=== PATIENT | female | born 1955 | race Caucasian/White ===

== ENCOUNTER 2016-06-30 10:25 | Day surgery (SDC) | payer MEDICARE, BC ==
[~2016-06-30 10:25] MED LIST: FAMOTIDINE 20 MG/2 ML VIAL IV PRN; HYDROmorphone 1 MG/ML 1 ML SYRINGE IVP PRN; LACTATED RINGERS 1,000 ML IV SCH; LIDOCAINE 1% 20 ML VIAL (10MG/ML) FOR IV START INTRADERMA PRN; MIDAZOLAM 2 MG/2 ML VIAL IV PRN; ONDANSETRON 4 MG/2 ML VIAL IVP PRN; Pre Op ABX Message 1 EACH MISC MISCELLANE ONE
[2016-06-30 11:32] VITALS: TEMP 98.3
[2016-06-30] MEDS ORDERED: MIDAZOLAM 2 MG/2 ML VIAL ONE (12:47)
[2016-06-30] MEDS ORDERED: PROPOFOL 10 MG/ML 20 ML VIAL IV ONE (12:47)
[2016-06-30] MEDS ORDERED: LIDOCAINE 1% INJ 10MG/ML (20 ML MDV) ONE (12:47)
[2016-06-30] MEDS ORDERED: fentaNYL (PF) 50 MCG/ML 2 ML AMP ONE (12:47)
[2016-06-30 13:43] VITALS: BP 101/71; PULSE 67; RESP 20
--- NOTE | 2016-06-30 13:44 | P.WCSRGD ---
Wound Ctr Surgical Debridement Date of service: 06/30/2016 Surgeon: Zaria Pre-and postop diagnosis: Large decubiti over the coccyx and sacrum Type of debridement: Excisional surgical Chief complaint: ulcer of as described above Anesthesia: 2% lidocaine gel applied to the ulcer Signs of infection: Mild redness Extent of necrotic, devitalized or non-viable tissue: Large rolled edge and skin bridge Other material in the wound that is expected to inhibit healing or promote adjacent tissue breakdown: Same Degree of epithelialization: % Method and instrument: Surgical debridement with scalpel Character of the wound after debridement: Clean open subcutaneous bed with granulation Description of necrotic material present: Rolled skin edge and skin bridge Description of tissue removed: Same Pre-debridement measurement: 11 x 6.5 cm and 1.5 cm in depth with deep undermining at 6:00 and a large central skin bridge Postoperative debridement measurement: 11 x 6.5 cm and 1.5 cm in depth. The undermining, skin bridge and rolled skin edges were removed Control of bleeding:Bleeding was easily controlled with saline moistened gauze and light pressure as well as electrocautery Post debridement dressing: Curlex packing Patient tolerated procedure well
== END 2016-06-30 14:40 ==
LOC: OR 10:25
PROVIDERS: ATTEND Thoracic Surgery (Cardiothoracic Vascular Surgery)
DX: L89.154 Pressure ulcer of sacral region, stage 4 (principal); L03.312 Cellulitis of back [any part except buttock and flank]; G35 Multiple sclerosis; G82.50 Quadriplegia, unspecified; I10 Essential (primary) hypertension; F41.9 Anxiety disorder, unspecified; Z86.14 Personal history of Methicillin resistant Staphylococcus aureus infection; Z79.2 Long term (current) use of antibiotics; Z79.899 Other long term (current) drug therapy; Z87.891 Personal history of nicotine dependence
CPT/HCPCS: 11042; 11045 ×3; J2250; J2405; J2001; J3010; J2704; 99152; 99153

== ENCOUNTER 2016-10-11 09:52 | Inpatient (IN) | payer MEDICARE, BC ==
--- NOTE | 2016-10-11 10:14 | ED ---
General Adult HPI - General Chief complaint: Altered Mental Status Stated complaint: Altered mental status Time Seen by Provider: 10/11/16 10:03 Source: family, EMS, RN notes reviewed Mode of arrival: EMS Limitations: altered mental status - History of Present Illness Initial comments: Patient is a pleasant 61-year-old female presenting to the emergency Department with change in mental status. Patient is not answering appropriately and history is obtained by the . Patient has not been ambulatory secondary to MS for several years. Patient has had declining mental status over the past 6 months. Patient is markedly confused yesterday and today. Patient has been sleeping all day. Patient did have fever of 101 yesterday and was given Tylenol then. Further history is limited. - Related Data Home Medications Medication Instructions Recorded Confirmed Amino Acids/Protein Hydrolys 30 ml PO DAILY 05/10/16 10/04/16 [Pro-Stat Supplement] Cholecalciferol [Vitamin D3] 2,000 unit PO HS 05/10/16 10/04/16 Cyanocobalamin (Vitamin B-12) 1,000 mcg PO HS 05/10/16 10/04/16 [Vitamin B-12] Melatonin 3 mg PO HS PRN 05/10/16 10/04/16 Multivitamins, Thera [Multivitamin 1 tab PO DAILY 05/10/16 10/04/16 (formulary)] Nystatin 100,000 Unit/gm Powd 1 applic TOPICAL TID 05/10/16 10/04/16 [Mycostatin Powder] [place]-3 Fatty Acids/Fish Oil [Fish 1 each PO DAILY 05/10/16 10/04/16 Oil 1,000 mg Softgel] Oxybutynin Chloride [Ditropan XL] 10 mg PO HS 05/10/16 10/04/16 Polyethylene Glycol 3350 [Miralax] 17 gm PO QAM 05/10/16 10/04/16 Baclofen 10 mg PO TID 05/24/16 10/04/16 Lactobacillus Acidophilus 1 cap PO BID 05/24/16 10/04/16 [Acidophilus] ALPRAZolam [Xanax] 0.5 mg PO TID 06/24/16 10/04/16 Bisacodyl 10 mg PO DIRECTED PRN 06/24/16 10/04/16 Lactose-Reduced Food [Ensure Plus] 1 dose PO TID 06/24/16 10/04/16 Acetaminophen [Tylenol] 325 mg PO Q4H PRN 08/16/16 10/04/16 traMADol HCl [Ultram] 50 mg PO HS PRN 08/16/16 10/04/16 Ipratropium-Albuterol Nebulize 3 ml INHALATION Q6HR 08/23/16 10/04/16 [Duoneb 0.5 mg-3 mg/3 ml Soln] Loratadine [Claritin] 10 mg PO DAILY 09/20/16 10/04/16 Ferrous Sulfate [Iron (65 MG 325 mg PO DAILY 09/27/16 10/04/16 Elemental)] Folic Acid 0.4 mg PO HS 09/27/16 10/04/16 Allergies Allergy/AdvReac Type Severity Reaction Status Date / Time No Known Allergies Allergy Verified 10/11/16 09:58 Review of Systems ROS Statement: Those systems with pertinent positive or pertinent negative responses have been documented in the HPI. ROS Other: All systems not noted in ROS Statement are negative. Limitations: ROS unobtainable due to patients medical condition Constitutional: Reports: fever Past Medical History Past Medical History: Hypertension, Skin Disorder Additional Past Medical History / Comment(s): NEEDS WANDA FOR LIFTING, RAO CATH, CAN TAKE ORAL MEDS ONE AT A TIME. Multiple Sclerosis since 1998.; sacral & L hip decubitus ulcer with cellulitis ; malnutrition; Chronic UTI's History of Any Multi-Drug Resistant Organisms: ESBL, MRSA Date of last positivie culture/infection: 05/31/16-MRSA; 09/07/16 -ESBL E.coli MDRO Source:: MRSA-Buttock; ESBL-tissue culture Past Surgical History: Appendectomy, Section, Tubal Ligation Additional Past Surgical History / Comment(s): DEBRIDEMENT OF SACRAL PRESSURE SORE IN MARCH 2016 AT [facility]. Past Anesthesia/Blood Transfusion Reactions: No Reported Reaction Past Psychological History: Anxiety Smoking Status: Former smoker Past Alcohol Use History: Unable to Obtain Additional Past Alcohol Use History / Comment(s): unknown smoking history Past Drug Use History: Unable to Obtain - Past Family History Mother Family Medical History: No Reported History General Exam Limitations: altered mental status, physical limitation General appearance: alert, in no apparent distress Head exam: Present: atraumatic Eye exam: Present: normal appearance, PERRL ENT exam: Present: mucous membranes dry Neck exam: Present: normal inspection Respiratory exam: Present: normal lung sounds bilaterally Cardiovascular Exam: Present: tachycardia Expanded Peripheral pulses: 2+: Radial (R), Radial (L), Dorsalis Pedis (R), Dorsalis Pedis (L) GI/Abdominal exam: Present: soft. Absent: tenderness Extremities exam: Present: other (Legs are somewhat contracted). Absent: pedal edema, calf tenderness Neurological exam: Present: alert, altered, other (Limited exam. No flaccid paralysis.) Expanded Neurological exam: Present: protecting the airway, other (Answers yes and no however inappropriately.) Patient oriented to: Present: person, place, time Psychiatric exam: Present: normal affect Skin exam: Present: other (Sacral wound vac) Course Vital Signs 10/11/16 09:53 Temperature 98.2 F Pulse Rate 113 H Respiratory 18 Rate Blood Pressure 151/73 O2 Sat by Pulse 94 L Oximetry - Reevaluation(s) Reevaluation #1: 10/11/16 10:52 Patient does meet sepsis criteria diagnosed at 10:52 AM. 10/11/16 10:56 Patient does meet criteria for septic shock. Lactic acid is 4. Patient has received greater than 30 mL/kg IV fluid bolus. EKG Findings - EKG Comments: EKG Findings:: Artifact is present. Narrow complex rhythm at 108. QRS 60. QT to 94. QTC 393. Normal axis. Normal QRS. No ST change. Procedures - Sepsis Sepsis Focused Exam #1 Time Sepsis Criteria Met: 10:52 Sepsis Focused Exam Date: 10/11/16 Sepsis Focused Exam Time: 10:58 Sepsis Focused Exam Complete: Yes Vital Signs & RN Notes Reviewed: Yes Capillary Refill: < 2 Seconds: Fingers, Toes Peripheral Pulses: Normal: Radial (R), Radial (L) Skin Color: Normal for Patient Respiratory Exam: normal lung sounds Cardiovascular Exam: regular rate, normal rhythm Medical Decision Making - Medical Decision Making Patient was evaluated again and somewhat improved. Patient is more alert and somewhat more appropriate. Case was discussed in detail with Dr. Aden, who will admit for Dr. Valencia. Dr. Jain will be consult. Admission orders written. - Lab Data Result diagrams: 10/11/16 10:06 10/11/16 10:06 Lab Results 10/11/16 10/11/1617 Range/Units 10:06 10:06 10:06 WBC 33.2 H* (3.8-10.6) k/uL RBC 4.04 (3.80-5.40) m/uL Hgb 10.3 L (11.4-16.0) gm/dL Hct 32.9 L (34.0-46.0) % MCV 81.4 (80.0-100.0) fL MCH 25.5 (25.0-35.0) pg MCHC 31.3 (31.0-37.0) g/dL RDW 15.3 (11.5-15.5) % Plt Count 449 (150-450) k/uL Neutrophils % 94 % Lymphocytes % 3 % Monocytes % 3 % Eosinophils % 0 % Basophils % 0 % Neutrophils # 31.2 H (1.3-7.7) k/uL Lymphocytes # 0.8 L (1.0-4.8) k/uL Monocytes # 0.9 (0-1.0) k/uL Eosinophils # 0.0 (0-0.7) k/uL Basophils # 0.1 (0-0.2) k/uL Hypochromasia Slight PT (9.0-12.0) sec INR (<1.1) APTT (22.0-30.0) sec Sodium 145 (137-145) mmol/L Potassium 5.4 H (3.5-5.1) mmol/L Chloride 109 H (98-107) mmol/L Carbon Dioxide 19 L (22-30) mmol/L Anion Gap 17 mmol/L BUN 54 H (7-17) mg/dL Creatinine 2.21 H (0.52-1.04) mg/dL Est GFR (MDRD) Af Amer 27 (>60 ml/min/1.73 sqM) Est GFR (MDRD) Non-Af 23 (>60 ml/min/1.73 sqM) Glucose 132 H (74-99) mg/dL Plasma Lactic Acid Александр (0.7-2.0) mmol/L Calcium 9.3 (8.4-10.2) mg/dL Total Bilirubin 0.6 (0.2-1.3) mg/dL AST 24 (14-36) U/L ALT 21 (9-52) U/L Alkaline Phosphatase 103 (38-126) U/L Total Creatine Kinase 69 (30-135) U/L Total Protein 7.0 (6.3-8.2) g/dL Albumin 3.0 L (3.5-5.0) g/dL Urine Color Urine Appearance (Clear) Urine pH (5.0-8.0) Ur Specific [place] (1.001-1.035) Urine Protein (Negative) Urine Glucose (UA) (Negative) Urine Ketones (Negative) Urine Blood (Negative) Urine Nitrite (Negative) Urine Bilirubin (Negative) Urine Urobilinogen (<2.0) mg/dL Ur Leukocyte Esterase (Negative) Urine RBC (0-5) /hpf Urine WBC (0-5) /hpf Urine WBC Clumps (None) /hpf Amorphous Sediment (None) /hpf Urine Bacteria (None) /hpf Urine Mucus (None) /hpf 10/11/16 10/11/16 10/11/16 Range/Units 10:06 10:06 10:06 WBC (3.8-10.6) k/uL RBC (3.80-5.40) m/uL Hgb (11.4-16.0) gm/dL Hct (34.0-46.0) % MCV (80.0-100.0) fL MCH (25.0-35.0) pg MCHC (31.0-37.0) g/dL RDW (11.5-15.5) % Plt Count (150-450) k/uL Neutrophils % % Lymphocytes % % Monocytes % % Eosinophils % % Basophils % % Neutrophils # (1.3-7.7) k/uL Lymphocytes # (1.0-4.8) k/uL Monocytes # (0-1.0) k/uL Eosinophils # (0-0.7) k/uL Basophils # (0-0.2) k/uL Hypochromasia PT 12.9 H (9.0-12.0) sec INR 1.3 (<1.1) APTT 35.7 H (22.0-30.0) sec Sodium (137-145) mmol/L Potassium (3.5-5.1) mmol/L Chloride (98-107) mmol/L Carbon Dioxide (22-30) mmol/L Anion Gap mmol/L BUN (7-17) mg/dL Creatinine (0.52-1.04) mg/dL Est GFR (MDRD) Af Amer (>60 ml/min/1.73 sqM) Est GFR (MDRD) Non-Af (>60 ml/min/1.73 sqM) Glucose (74-99) mg/dL Plasma Lactic Acid Александр 4.0 H* (0.7-2.0) mmol/L Calcium (8.4-10.2) mg/dL Total Bilirubin (0.2-1.3) mg/dL AST (14-36) U/L ALT (9-52) U/L Alkaline Phosphatase (38-126) U/L Total Creatine Kinase (30-135) U/L Total Protein (6.3-8.2) g/dL Albumin (3.5-5.0) g/dL Urine Color Yellow Urine Appearance Turbid H (Clear) Urine pH 6.0 (5.0-8.0) Ur Specific [place] 1.017 (1.001-1.035) Urine Protein 2+ H (Negative) Urine Glucose (UA) Negative (Negative) Urine Ketones Negative (Negative) Urine Blood Moderate H (Negative) Urine Nitrite Negative (Negative) Urine Bilirubin Negative (Negative) Urine Urobilinogen <2.0 (<2.0) mg/dL Ur Leukocyte Esterase Large H (Negative) Urine RBC 66 H (0-5) /hpf Urine WBC >182 H (0-5) /hpf Urine WBC Clumps Occasional H (None) /hpf Amorphous Sediment Rare H (None) /hpf Urine Bacteria Many H (None) /hpf Urine Mucus Few H (None) /hpf - Radiology Data Radiology results: report reviewed (Computed tomography scan of the brain shows atrophy and white matter changes. No acute process.), image reviewed (Chest x- ray shows minimal patchy right basilar areas of atelectasis or early infiltrate. ) Critical Care Time Critical Care Time: Yes Total Critical Care Time: 38 Disposition Clinical Impression: Urinary tract infection, Septic shock, Dehydration Disposition: ADMITTED IP TO THIS [facility] Condition: Serious Referrals: Lucius Valencia MD [Primary Care Provider] - 1-2 days Time of Disposition: 11:05
[2016-10-11] MEDS: SODIUM CHLORIDE 0.9% 500 ML IV SCH ×2 (10:17→11:03)
--- NOTE | 2016-10-11 10:37 | XR ---
EXAMINATION TYPE: XR chest 1V portable DATE OF EXAM: 10/11/2016 10:31 AM Comparison: None Clinical History: [id number] female with fever Findings: Leftward patient rotation alters the normal cardiac mediastinal contours. Heart appears normal size. Aorta and pulmonary vasculature within normal limits. There is some patchy bibasilar opacity. Upper a nd mid lungs are clear. No significant pleural effusion. Impression: Limited portable rotated exam. Some minimal patchy bibasilar areas of atelectasis or early infiltrate s are noted.
[2016-10-11 10:38] LABS: Basophils # (A) 0.1 k/uL (0-0.2); Basophils % (A) 0 %; CH 25.3; CHCM 31.2; Eosinophils % (A) 0 %; HCT 32.9 % (34.0-46.0); HDW 2.61; HGB 10.3 gm/dL (11.4-16.0); Hypochromasia Slight; Luc # (Auto) 0.15; Luc % (Auto) 1; Lymphocytes # (A) 0.8 k/uL (1.0-4.8); Lymphocytes % (A) 3 %; MCH 25.5 pg (25.0-35.0); MCHC 31.3 g/dL (31.0-37.0); MCV 81.4 fL (80.0-100.0); Mean Platelet Volume 6.5; Monocytes # (A) 0.9 k/uL (0-1.0); Monocytes % (A) 3 %; Neutrophils # (A) 31.2 k/uL (1.3-7.7); Neutrophils % (A) 94 %; RBC 4.04 m/uL (3.80-5.40); RDW 15.3 % (11.5-15.5); WBC (Perox) 33.61
[2016-10-11 10:42] LABS: WBC 33.2 k/uL (3.8-10.6)
[2016-10-11 10:45] LABS: Amorphous Sediment,Urine Rare /hpf; Appearance,Urine Turbid (Clear); Bacteria,Urine Many /hpf; Bilirubin,Urine Negative (Negative); Glucose,Urine (UA) Negative (Negative); Ketones,Urine Negative (Negative); Leukocyte Esterase,Urine Large (Negative); Mucus,Urine Few /hpf; Nitrite,Urine Negative (Negative); Particle Count 74938; Protein,Urine 2+ (Negative); RBC,Urine 66 /hpf (0-5); Specific Gravity,Urine 1.017 (1.001-1.035); UA Billing (MACRO vs. MICRO) MICRO; Urobilinogen,Urine <2.0 mg/dL (<2.0); WBC,Urine >182 /hpf (0-5)
[2016-10-11 10:51] LABS: Calcium 9.3 mg/dL (8.4-10.2); Potassium 5.4 mmol/L (3.5-5.1); Total Bilirubin 0.6 mg/dL (0.2-1.3)
--- NOTE | 2016-10-11 10:52 | CT ---
EXAMINATION TYPE: CT brain wo con DATE OF EXAM: 10/11/2016 10:48 AM COMPARISON: NONE INDICATION: sepsis, ams, fever DLP: 1029.9 mGycm, Automated exposure control for dose reduction was used. CONTRAST: None CT of the brain is performed utilizing 3 mm thick sections through the posterior fossa and 3 mm thick sections through the remaining calvarium. Study is performed within 24 hours of arrival to the hosp ital. No abnormal hyperdensity is present to suggest an acute intracranial hemorrhage. No mass lesion is evident. No acute infarcts are evident. There are patchy periventricular white matter hypodensity is present, likely on the basis of chronic white matter ischemic change. Ventricles and sulci are appropriate for the patient age. Paranasal sinuses and mastoid air cells within the [id number] are clear. Left septal deviation is present. A left septal spur is present. Some dense calcifications along the anterior falx. IMPRESSIONS: 1. No acute intracranial process. 2. Atrophy with periventricular white matter ischemic changes.
[2016-10-11 10:53] LABS: INR 1.3 (<1.1); Partial Thromboplastin Time 35.7 sec (22.0-30.0); Prothrombin Time 12.9 sec (9.0-12.0)
[2016-10-11] MEDS ORDERED: LEVOFLOXACIN 750MG-D5W PMX 750 MG in DEXTROSE/WATER 1 150ML.BAG IVPB STA (10:53)
[2016-10-11] MEDS ORDERED: SODIUM CHLORIDE 0.9% 500 ML IV STA (10:55)
[2016-10-11 11:02] LABS: Creatine Kinase 69 U/L (30-135)
[2016-10-11] MEDS: SODIUM CHLORIDE 0.9% 500 ML IV STA ×2 (11:02→11:03)
[2016-10-11] MEDS ORDERED: NALOXONE 0.4 MG/ML 1 ML VIAL IV PRN (11:06)
[2016-10-11] MEDS ORDERED: ACETAMINOPHEN TAB 325 MG TAB PO PRN (11:06)
[2016-10-11] MEDS ORDERED: IBUPROFEN 400 MG TAB PO PRN (11:06)
[2016-10-11] MEDS ORDERED: IV VANCOMYCIN PER PHARMACY 1 EACH MISC MISCELLANE PRN (11:08)
[2016-10-11 11:14] LABS: Creatine Kinase MB 1.8 ng/mL (0.0-2.4); Troponin I <0.012 ng/mL (0.000-0.034)
[2016-10-11] MEDS ORDERED: VANCOMYCIN 1,250 MG in SODIUM CHLORIDE 0.9% 250 ML IVPB ONE (12:00)
[2016-10-11] MEDS: SODIUM CHLORIDE 0.9% 1,000 ML IV SCH (12:21)
[2016-10-11] MEDS ORDERED: ONDANSETRON 4 MG/2 ML VIAL IM STA (13:41)
[2016-10-11] MEDS ORDERED: ONDANSETRON 4 MG/2 ML VIAL IVP STA (13:44)
[2016-10-11] MEDS: ALPRAZolam 0.5 MG TAB PO PRN (16:00)
[2016-10-11] MEDS: traMADol 50 MG TAB PO SCH ×2 (16:00→23:42)
[2016-10-11 16:26] LABS: Creatine Kinase 116 U/L (30-135)
[2016-10-11 16:38] LABS: Troponin I <0.012 ng/mL (0.000-0.034)
[2016-10-11 16:46] LABS: Creatine Kinase MB 2.9 ng/mL (0.0-2.4)
[2016-10-11] MEDS ORDERED: metroNIDAZOLE-NS PMX 500 MG in SALINE 1 100ML.BAG IVPB SCH (17:30)
--- NOTE | 2016-10-11 18:28 | HP ---
DATE OF ADMISSION: REASON FOR ADMISSION: Change in mental status. Patient presented from [facility], this is a 61-year-old female who has got a history of multiple sclerosis with contractures in lower extremities with decubitus wound, currently on a wound V.A.C. Apparently the wound is around 8 cms in diameter on her sacral region. The patient when brought into hospital patient was apparently not arousable. At baseline, answers some questions, however is bedridden. Patient does have a history of chronic wounds and urinary tract infection. Patient was brought into hospital and noted to have elevated white count around 30,000 and abnormal UA. Patient was also noted to have lactic acid around 4.5. Patient was given about 2 L of cystalloids. On eval, pt was awake, however lethargic, family how was at bedside described this not being her baseline. Most of the history is obtained from the patient's family and from the medical chart review. REVIEW OF SYSTEMS: Deferred due to patient's current condition Past medical history includes hypertension, multiple sclerosis, sacral and left decubitus ulcer, chronic UTIs . Surgical history includes appendectomy, , decubitus ulcer resection. SOCIAL HISTORY: Former smoker. No alcohol or drug history was reported. Currently lives in a long term. FAMILY HISTORY: Not pertinent to current admission. Home medications include: 1. Ultram. 2. Miralax. 3. Ditropan. 4. Fish oil. 5. Nystatin. 6. Multivitamin. 7. [place]. 8. ( ) 9. DuoNeb. 10. Folic acid. 11. Feosol. 12. Albuterol. 13. D3. 14. ( ). 15. Xanax. 16. Tylenol. 17. Prostat. ( ) reviewed and were appropriately reconciled on admission. PHYSICAL EXAMINATION: VITAL SIGNS: Patient appears to be tachycardic, heart rate around 104 to 110, blood pressure 129/63. Saturating at 94% on 2 L supplemental oxygen. Temperature is 96.9. GENERAL APPEARANCE: Appears to be somewhat distressed; however, lethargic. NECK: Supple. No JVD. HEART: S1, S2 heard. Tachycardic. No murmurs were appreciated. LUNGS: Good air movement rhonchi heard left lower lobe posteriorly ABDOMEN: Soft. Some tenderness appreciated in suprapubic region ( ). LOWER EXTREMITIES: No significant edema noted. Lower extremities are contracted. Patient was examined, area of wound V.A.C was appropriate no erythema. Non-tender. No erythema or significant infection. It was changed on 10/09/2016. Laboratory data include white cell count at 3.2, hemoglobin 10.3, hematocrit 32.8, platelets 449. Sodium 145, potassium 5.4, chloride 109, bicarb 19, BUN 54, creatinine 2.21. Lactic acid of 4. UA with significant bacteria. Influenza screen is negative. ASSESSMENT AND PLAN: 1. Severe sepsis secondary to likely a urinary tract infection. Rule out source of infection in sacral region. 2. Acute kidney injury secondary to prerenal azotemia from above. 3. History of multiple sclerosis. 4. Chronic indwelling Baltazar catheter, which will be changed. 5. Lactic acidosis secondary to #1. 6. History of hypertension. 7. Decubitus ulcer on the sacral region, chronic in nature. 8. Anxiety. 9. Chronic pain syndrome. PLAN: Will start antibiotics to treat pseudomonas and MRSA. Will have the infectious disease physician on consult. Chest x-ray was reviewed; appears rotated to the right. There are some changes in the right lower lobe which could be concerning for aspiration etiology as well in this patient. abx with vancomycin, cefepime, and flagyl Baltazar catheter will be changed and will repeat UA is requested. Other microbiology, including cultures of the blood and urine, are ordered. The wound V.A.C. appears to in place. It should be removed. Will obtain an x-ray to start; however, patient will likely need a bone scan to rule out any underlying osteomyelitis as a source of the current sepsis. DVT prophylaxis will be started with subcutaneous heparin. Repeat renal function. I directed the patient to receive a total of 4 L of crystalloids. Moniter closely, if respiratory status is compromised will need to discuss comfort measures. Due to family advanced directives critically ill. BRAYDEN
[2016-10-11 22:26] LABS: Creatine Kinase MB 2.1 ng/mL (0.0-2.4); Troponin I 0.018 ng/mL (0.000-0.034)
[2016-10-11] MEDS: MORPHINE SULFATE 2 MG/ML SYRINGE IVP PRN (23:31)
[2016-10-11] MEDS: CEFEPIME 1 GM in SODIUM CHLORIDE 0.9% 50 ML IVPB SCH (23:34)
[2016-10-12 06:46] LABS: Basophils % (A) 0 %; CHCM 29.7; Eosinophils # (A) 0.1 k/uL (0-0.7); Eosinophils % (A) 1 %; HCT 27.3 % (34.0-46.0); HDW 2.49; Hypochromasia Marked; Luc # (Auto) 0.09; Luc % (Auto) 1; Lymphocytes # (A) 0.4 k/uL (1.0-4.8); Lymphocytes % (A) 4 %; MCH 25.6 pg (25.0-35.0); MCHC 30.4 g/dL (31.0-37.0); MCV 84.3 fL (80.0-100.0); Mean Platelet Volume 6.1; Monocytes # (A) 0.3 k/uL (0-1.0); Monocytes % (A) 3 %; Neutrophils # (A) 11.4 k/uL (1.3-7.7); Neutrophils % (A) 92 %; RBC 3.24 m/uL (3.80-5.40); RDW 15.4 % (11.5-15.5); WBC 12.3 k/uL (3.8-10.6); WBC (Perox) 13.32
[2016-10-12 06:53] LABS: HGB 8.3 gm/dL (11.4-16.0)
[2016-10-12 07:07] LABS: ALT 27 U/L (9-52); AST 25 U/L (14-36); Alkaline Phosphatase 79 U/L (38-126); Anion Gap 12 mmol/L; Blood Urea Nitrogen 35 mg/dL (7-17); Calcium 8.2 mg/dL (8.4-10.2); Carbon Dioxide 18 mmol/L (22-30); Chloride 116 mmol/L (98-107); Glucose 92 mg/dL (74-99); Non-African American GFR(MDRD) >60 (>60 ml/min/1.73 sqM); Sodium 146 mmol/L (137-145); Total Bilirubin 0.3 mg/dL (0.2-1.3); Total Protein 5.7 g/dL (6.3-8.2)
[2016-10-12] MEDS: CEFEPIME 1 GM in SODIUM CHLORIDE 0.9% 50 ML IVPB SCH (07:58)
--- NOTE | 2016-10-12 08:01 | CONS ---
DATE OF CONSULTATION: 10/11/2016 REASON FOR CONSULTATION: Sepsis. HISTORY OF PRESENT ILLNESS: The patient is a 61-year-old female with past medical history significant for multiple sclerosis in a patient who did have urinary retention with chronic indwelling Baltazar catheter and sacral pressure ulcer. The patient has been sent to the [facility] ER with mental status changes. Apparently the patient was noticed to be mildly confused yesterday as well as today and has been sleeping only. The patient also had fever of 101.4 degrees Fahrenheit where the patient was given Tylenol. Subsequently, the patient has been sent to the ER where the patient had been evaluated by the ER physician. CT of the brain was negative for any acute bleed. Chest x-ray rotated exam. Some patchy bibasilar infiltrate. The patient did have an elevated white count of 33.2 with elevated lactic acid of 4. Urine has been significantly positive. Influenza A and B serology were negative. Patient has been started on broad-spectrum antibiotics in the form of Vanco, cefepime and Flagyl. I was asked to see the patient for further recommendation regarding antibiotic therapy. Most of the information has been obtained from review of the chart and talking to the nursing staff as well as the son who was present at beside. However, he was not very familiar with his mother's condition as the patient was unable to provide any history. Review of systems could not be reliably obtained. The positive points have been mentioned in the HPI. PAST MEDICAL HISTORY: Significant for multiple sclerosis, hypertension, history of sacral pressure ulcer, recurrent UTIs with recent ESBL E. coli and MRSA. PAST SURGICAL HISTORY: Appendectomy, , tubal ligation, debridement of sacral pressure ulcer. SOCIAL HISTORY: Remote history of smoking. No drinking or drug use. FAMILY HISTORY: No pertinent findings were noticed. ALLERGIES: No known drug allergies. MEDICATIONS: Currently include the patient is on Tylenol, Xanax, morphine sulfate, Narcan Protonix, Ultram, vancomycin, cefepime and Flagyl. On examination, blood pressure is 129/62 with a pulse of 110, temperature 96.9. She is 94% on 2 liters nasal cannula. General description is an elderly female, lying in bed in no distress. No tachypnea or accessory muscle of respiration use. HEENT examination shows pallor. There is no scleral icterus. Oral mucosal membranes dry. NECK: Trachea central. There is no thyromegaly. LUNGS: Unlabored breathing. Clear to auscultation anteriorly. HEART: S1, S2 regular rate and rhythm. ABDOMEN: Soft. No tenderness. EXTREMITIES: No edema of feet. SKIN EXAMINATION: No rash or mass palpable. NEUROLOGICAL: Patient remains lethargic, orientation could not be determined. LABS: Hemoglobin is 10.2, white count of 33.2 with a BUN of 54, creatinine is 2.21, potassium is 5.4. Urine has been significantly positive. Influenza A and B serology has been negative. DIAGNOSTIC IMPRESSION AND PLAN: Patient with sepsis in a patient who did have fever of elevated white count and tachycardia meeting criteria for systemic inflammatory response syndrome. Source is likely urinary tract infection. Clinically no significant pneumonia and doubt any intra-abdominal infection as the patient's abdomen was soft on clinical examination. The patient did have history of multiple resistant pathogens in the past including methicillin-resistant Staphylococcus aureus and recent ESBL, will need cover for resistant Gram-positive as well as gram-negative pathogen. PLAN: 1. The patient is continued on vancomycin, pharmacy to dose watching kidney function closely and will add meropenem to cover for the ESBL pathogen and discontinue cefepime and Flagyl. 2. Will follow up on the clinical condition and cultures to further adjust the medication if needed. Thank you for this consultation. Will follow this patient along with you.
[2016-10-12] MEDS: SODIUM CHLORIDE 0.9% 1,000 ML IV SCH ×3 (08:56→16:47)
[2016-10-12] MEDS: MEROPENEM 1 GM in SODIUM CHLORIDE 0.9% 100 ML IVPB SCH ×4 (08:57→23:09)
[2016-10-12] MEDS: PANTOPRAZOLE 40 MG/10 ML VIAL IV SCH (09:02)
[2016-10-12] MEDS: traMADol 50 MG TAB PO SCH ×3 (09:07→21:34)
[2016-10-12] MEDS: VANCOMYCIN 1,000 MG in SODIUM CHLORIDE 0.9% 250 ML IVPB SCH ×2 (11:09→20:04)
[2016-10-12] MEDS: MORPHINE SULFATE 2 MG/ML SYRINGE IVP PRN (13:30)
--- NOTE | 2016-10-12 15:33 | CDI ---
In responding to this query, please exercise your independent professional judgment. The [facility] Coding Staff and Clinical Documentation Specialists appreciate your assistance in clarifying documentation, maintaining compliance with coding guidelines, accurately documenting patients condition and capturing severity of illness. The fact that a question is asked does not imply that any particular answer is desired or expected. Communication forms are a method of clarifying documentation and are not made part of the Legal Health Record. Thank you in advance for your clarification. Last Revision, April 2015 Cara Boland [address] [place] [address] Documentation Clarification Form Date: 10/12/2016 3:24:00 PM From: Saloni Baez, CCS, CCDS Admit Date: 10/11/2016 12:18:00 PM Patient Name: Adele Wallis Visit Number: [id number] Discharge Date: Dr. Shaikh Alfonso: A diagnosis of UTI has been documented in the Infectious Disease consult: " Patient with sepsis in a patient who did have fever of elevated white count and tachycardia meeting criteria for systemic inflammatory response syndrome. Source is likely urinary tract infection. " History/Risk factors: MS since 1998 with contractures, sacral buttock ulcer unstageable, recurrent UTIs and MRSA. Patient has an indwelling Baltazar catheter. Clinical Indicators: VS: T 98.2, P 113, R 18, BP 151/73, PO 94 ra Urinalysis: Yellow, turbid, 2+ prot, mod blood, large esterase, RBC 66, WBC > 182. Urine culture: Pending. Treatment: IV fluids, IV Levaquin, IV fluid boluses, IV Narcan, IV Vanco, IV & IM Zofran Admitted to [phone] In your professional opinion, can you please clarify the etiology of the UTI, if known? Baltazar catheter Suprapubic catheter UTI not related to catheter Other condition, please specify Unable to determine If an infective organism is present, please specify cause and effect relationship if applicable. Please document in your progress notes and discharge summary in order to capture severity of illness and risk of mortality. Include clinical findings that support your diagnosis. FYI: Press F11 to launch patient chart ___x__ Place X here if this finding has no clinical significance, is not applicable or if you are not able to provide any additional documentation. Thank You. BRAYDEN
[2016-10-12] MEDS: ALPRAZolam 0.5 MG TAB PO PRN (21:34)
--- NOTE | 2016-10-12 21:56 | PN ---
DATE OF SERVICE: 10/12/2016 Reason for follow-up: 1. Sepsis, possible UTI. 2. Stage IV sacral pressure ulcer. INTERVAL HISTORY: The patient is afebrile. She seemed to more awake and alert today. She is breathing comfortably. Denies significant chest pain, cough, no abdominal pain or pain in the sacral area. On examination, blood pressure 108/60 with a pulse of 89, temperature 98.8, she is 95% on 2 L nasal cannula. General description is a middle-age female lying in bed in no distress. RESPIRATORY SYSTEM: Unlabored breathing. Clear to auscultation anteriorly. HEART: S1, S2. Regular rate and rhythm. ABDOMEN: Soft. No tenderness. Sacral area did show stage IV pressure ulcer. No significant cellulitis or foul smelling drainage. LABS: Hemoglobin 8.3, white count 12.3 with a BUN of 35, creatinine 0.90. Blood culture with gram-negative. DIAGNOSTIC IMPRESSION AND PLAN: 1. Patient with gram-negative bacteremia and the patient admitted to hospital with sepsis, source is likely urinary. Baltazar has been changed recently. The patient will continue Meropenem because of history of resistant gram negative infection especially ESBL has been in the past to which the patient responded with adjustment made further on the basis of the culture report. 2. Patient with stage IV sacral pressure ulcer wound continue with wound vac continuous pressure at 125 mmhg to be changed Tuesday, and Tuesday. Continue supportive care. MTDD
[2016-10-13] MEDS: SODIUM CHLORIDE 0.45% 1,000 ML IV SCH ×2 (00:45→16:52)
[2016-10-13] MEDS ORDERED: LEVOFLOXACIN 750MG-D5W PMX 750 MG in DEXTROSE/WATER 1 150ML.BAG IVPB SCH (06:00)
[2016-10-13 08:33] LABS: Basophils % (A) 0 %; CH 24.5; CHCM 29.6; Eosinophils # (A) 0.2 k/uL (0-0.7); Eosinophils % (A) 2 %; HCT 26.4 % (34.0-46.0); HDW 2.51; Hypochromasia Marked; Luc # (Auto) 0.11; Luc % (Auto) 2; Lymphocytes # (A) 0.8 k/uL (1.0-4.8); Lymphocytes % (A) 11 %; MCH 25.3 pg (25.0-35.0); MCHC 30.5 g/dL (31.0-37.0); Mean Platelet Volume 6.7; Monocytes # (A) 0.3 k/uL (0-1.0); Monocytes % (A) 3 %; Neutrophils % (A) 82 %; RBC 3.18 m/uL (3.80-5.40); RDW 15.3 % (11.5-15.5); WBC 7.3 k/uL (3.8-10.6); WBC (Perox) 7.89
[2016-10-13] MEDS: PANTOPRAZOLE 40 MG/10 ML VIAL IV SCH (08:40)
[2016-10-13] MEDS: traMADol 50 MG TAB PO SCH ×3 (08:45→23:17)
[2016-10-13] MEDS ORDERED: VANCOMYCIN 1,250 MG in SODIUM CHLORIDE 0.9% 250 ML IVPB SCH (09:00)
[2016-10-13 09:02] LABS: Anion Gap 9 mmol/L; Blood Urea Nitrogen 19 mg/dL (7-17); Calcium 8.3 mg/dL (8.4-10.2); Carbon Dioxide 21 mmol/L (22-30); Chloride 108 mmol/L (98-107); Glucose 88 mg/dL (74-99); Non-African American GFR(MDRD) >60 (>60 ml/min/1.73 sqM); Potassium 3.4 mmol/L (3.5-5.1); Sodium 138 mmol/L (137-145)
--- NOTE | 2016-10-13 09:07 | PN ---
DATE OF SERVICE: 10/12/2016 INTERVAL HISTORY: Ms. Wallis is a 61-year-old female with known history of hypertension, multiple sclerosis, sacral decubitus ulcer and previous history of multidrug resistant UTI who is also currently on wound VAC for decub ulcers was brought to the hospital as the patient apparently was not arousable. Patient is currently being treated for urinary tract infection with meropenem due to history of multidrug resistant in the past. ID is following this patient. Patient currently today is more awake and oriented. Wound dressing has been done today. Denied any complaints of chest pain. No complaints of pain at this time. No acute overnight issues. Leukocytosis is improving now. Patient otherwise denied any complaints of chest pain or short of breath. No nausea or vomiting. No diarrhea or dysuria. Patient has a Baltazar catheter, which has been changed. All other review of systems negative except the above. Current medications include Tylenol, Xanax, meropenem, morphine sulfate, Narcan, Protonix, vancomycin, tramadol and normal saline at 100 mL per hour. PHYSICAL EXAMINATION: A 61-year-old female, lying in the bed. Awake, alert, oriented x3; appears to be in no apparent distress. VITALS: Blood pressure is 131/70, pulse 103, respirations 18, temperature afebrile, pulse ox 96% pm 2 L nasal cannula. HEENT: Atraumatic normocephalic. Neck is supple. No JVD. CVS EXAM: S1, S2 heard. No murmurs, no gallop. LUNGS: Bilateral air entry is present. Diminished breath sounds bilaterally. Nonlabored breathing. ABDOMEN: Soft, nontender. Bowel sounds are present. WINDOWS ADMINISTRATOR: Awake, alert, oriented, x3. EXTREMITIES: No edema. Pulses are palpable bilaterally. Wound VAC is in place for decub ulcers. SKIN: Patient does have sacral decub ulcer, ( ) in diameter, stage IV. LABORATORY DATA: WBC 12.3, hemoglobin 8.3, platelets 293. Sodium 146, potassium 4.0, chloride 116, bicarb is 18, BUN 35, creatinine 0.9. Albumin 2.4. IMPRESSION: 1. Severe sepsis secondary to urinary tract infection with history of multiple urinary tract infection with multidrug resistant bacteria. 2. Sacral decubitus ulcers currently on wound VAC, rule out infection. Continue the dressing changes. 3. Acute kidney injury secondary to prerenal, improving. 4. History of multiple sclerosis. 5. Chronic indwelling Baltazar catheter, which has been changed. 6. Lactic acidosis, improved. 7. Hypertension history. 8. Chronic pain syndrome. 9. Anxiety. DISCUSSION AND PLAN: The patient will be continue on antibiotics in the form of vancomycin and meropenem. ID is following this patient. Will follow up on the wound cultures and continue with the wound VAC management. Continue with DVT prophylaxis with heparin subcu. Leukocytosis is improving now. Will continue with current management. IV fluids will be changed to half normal saline due to hyperchloremia and hypernatremia. Will follow up closely. Further management depending on the clinical course.
[2016-10-13] MEDS: VANCOMYCIN 1,000 MG in SODIUM CHLORIDE 0.9% 250 ML IVPB SCH (10:56)
[2016-10-13] MEDS: MEROPENEM 1 GM in SODIUM CHLORIDE 0.9% 100 ML IVPB SCH ×3 (13:51→23:41)
--- NOTE | 2016-10-13 20:12 | PN ---
DATE OF SERVICE: 10/13/2016 REASON FOR FOLLOWUP: Gram-negative bacteremia, source urinary. INTERVAL HISTORY: The patient is afebrile. He is feeling slightly better, more awake and alert, breathing comfortably. Denies significant chest pain. No cough. No abdominal pain. On examination, blood pressure 119/72 with a pulse of 94, temperature 97.6. She is 95% on 2L nasal cannula. General description is a middle-age female lying in bed in no distress. RESPIRATORY SYSTEM: Unlabored breathing. Clear to auscultation anteriorly. HEART: S1, S2. Regular rate and rhythm. ABDOMEN: Soft. No tenderness. EXTREMITIES: No edema of feet. LABS: Hemoglobin 8 with a white count 7.3. BUN of 19, creatinine 0.61. Blood culture with gram- negative bacilli. ID sensitivity is pending. DIAGNOSTIC IMPRESSION AND PLAN: 1. Patient with gram-negative bacteremia, source urinary. At this time, will repeat blood cultures x1 to make sure no evidence of any persistent bacteremia. Check ultrasound of the abdomen. As no gram-positive has been grown, will discontinue the vancomycin and keep the patient on meropenem in view of the previous history of an extended-spectrum beta-lactamase Escherichia coli urinary tract infection. 2. Patient with a stage IV sacral pressure ulcer for which continue with the wound VAC. Continue supportive care.
[2016-10-13] MEDS: HEPARIN SODIUM,PORCINE 5,000 UNIT/ML 1 ML VIAL SQ SCH (23:48)
[2016-10-14] MEDS: MEROPENEM 1 GM in SODIUM CHLORIDE 0.9% 100 ML IVPB SCH ×2 (07:39→15:54)
[2016-10-14] MEDS: ALPRAZolam 0.5 MG TAB PO PRN ×2 (07:46→17:11)
[2016-10-14] MEDS: HEPARIN SODIUM,PORCINE 5,000 UNIT/ML 1 ML VIAL SQ SCH ×2 (07:49→15:55)
[2016-10-14] MEDS: PANTOPRAZOLE 40 MG TABLET PO SCH (07:49)
[2016-10-14] MEDS: traMADol 50 MG TAB PO SCH ×3 (07:50→21:10)
[2016-10-14] MEDS: SODIUM CHLORIDE 0.45% 1,000 ML IV SCH ×2 (07:50→15:56)
[2016-10-14] MEDS ORDERED: VANCOMYCIN TROUGH DUE 1 EACH MISC MISCELLANE ONE (08:00)
--- NOTE | 2016-10-14 09:14 | US ---
EXAMINATION TYPE: US abdomen complete DATE OF EXAM: 10/14/2016 8:28 AM COMPARISON: NONE CLINICAL HISTORY: fever , bacteremia. Fever, bacteremia, exam done portable EXAM MEASUREMENTS: Liver Length: 19.4 cm Gallbladder Wall: 0.5 cm CBD: 0.4 cm Spleen: 15.5 cm Right Kidney: 12.5 x 5.1 x 5.4 cm Left Kidney: 12.0 x 6.1 x 6.4 cm Pancreas: wnl Liver: enlarged at 19.4cm, slightly heterogeneous Gallbladder: low level echoes within along with echogenic shadowing foci, irregularly thickened wall Evidence for sonographic Salmon's sign: no CBD: wnl Spleen: enlarged at 15.5cm, limited by rib shadowing and overlying bowel gas Right Kidney: 1.4cm echogenic shadowing focus mid pole, 2.2 x 2.0 x 1.6cm hypoechoic area superior p ole Left Kidney: visualized portions wnl, limited by rib shadowing and overlying bowel gas Upper IVC: wnl Abd Aorta: visualized portions wnl, partially obscured by overlying midline bowel gas IMPRESSION: 1. Shadowing renal calculi without obstruction within the right renal pelvis 2. Right renal cortical cyst 3. Debris with echogenic area within the fundus. Gallbladder wall is thickened and there appears to b e a wall echo shadow complex. Correlate for acute cholecystitis.
--- NOTE | 2016-10-14 09:17 | PN ---
DATE OF SERVICE: 10/13/2016 . Carrier is a 61-year-old female with known history of hypertension, multiple sclerosis and status post sacral decubitus ulcer, currently on a wound VAC and history of ESPL UTI, admitted to the hospital with altered status, currently being treated for a urinary tract infection with the meropenem and also vancomycin. ID is following this patient. Patient is more awake and oriented today. . No fever. No chills. No acute overnight issues. Urine culture showed Proteus and E. coli. Blood cultures shows E. coli and Proteus as well. Blood cultures have been repeated. No fever. No chills. No chest pain or short of breath. No nausea, vomiting or abdominal pain. All other review of systems are negative except as above. CURRENT MEDICATIONS: Reviewed. PHYSICAL EXAMINATION: A 61-year-old female, lying in the bed. Awake, alert, oriented x3, appears to be in no apparent distress. VITALS: Blood pressure is 119/72, pulse is 111, respirations 18, temperature afebrile, pulse ox 95% on 2 L nasal cannula. HEENT: Atraumatic, normocephalic. Neck is supple. No JVD. CVS EXAM: S1, S2 heard, no murmur, no gallop. LUNGS: Bilateral air entry is present, no murmurs, no gallop. Abdomen is soft, bowel sounds are present. TEXTILES AND CLOTHING TEACHER: Awake, alert, oriented x3. Patient able to move all limbs. EXTREMITIES: No edema. SKIN: Patient does have stage IV sacral decub ulcer with wound VAC in place. LABORATORY DATA: WBC 7.3, hemoglobin 8.0, platelets 237, sodium 138, potassium 3.4, chloride 108. Bicarb is 21, BUN 19, creatinine 0.61, albumin 2.4. IMPRESSION: 1. Severe sepsis secondary to urinary tract infection. Urine culture showed Escherichia coli and Proteus. Final culture is pending. 2. Escherichia coli and Proteus bacteremia, repeat blood cultures have been ordered. Continued on meropenem. 3. Acute kidney injury secondary to prerenal, improving now. 4. History of multiple sclerosis. 5. Chronic Baltazar catheter, indwelling which has been changed. 6. Lactic acidosis, resolved. 7. Hypertension. 8. Chronic pain syndrome. 9. Anxiety. 10. Deep venous thrombosis prophylaxis with heparin subQ. DISCUSSION AND PLAN: Patient will be continued on antibiotics in the form of meropenem. Vancomycin has been discontinued as there is no gram-positive growth. Will follow up with blood cultures and continue with antibiotics in the form meropenem. ID is on board and patient is clinically improved now. Further recommendations based on the clinical course. MTDD
[2016-10-14] MEDS: MORPHINE SULFATE 2 MG/ML SYRINGE IVP PRN (17:11)
--- NOTE | 2016-10-14 18:07 | PN ---
DATE OF SERVICE: 10/14/2016 REASON FOR FOLLOWUP: ESBL bacteremia. INTERVAL HISTORY: The patient is afebrile. She is currently breathing comfortably. Denies significant chest pain. Occasional cough. No abdominal pain, nausea, vomiting or any diarrhea. However, she is not a very good historian. On examination, blood pressure is 133/67 with a pulse of 85, temperature 97.7. She is 95% on 2 L nasal cannula. General description is a middle-aged female lying in bed in no distress. RESPIRATORY SYSTEM: Unlabored breathing. Clear to auscultation anteriorly. HEART: S1, S2. Regular rate and rhythm. ABDOMEN: Soft. She is mildly tender in the right upper quadrant area. Slight guarding. No rigidity. EXTREMITIES: No edema of feet. LABS: Hemoglobin 8, white count 7.3 with a BUN of 19, creatinine 0.61. DIAGNOSTIC IMPRESSION AND PLAN: 1. Patient with an ESBL Escherichia coli bacteremia. Source is likely urinary; however, abdominal ultrasound did show concern for possible cholecystitis. She may benefit from evaluation by Surgery. Keep the patient on Meropenem. Patient will likely need a PICC line for outpatient IV antibiotic therapy. 2. Sacral wound, stage IV. Continue the wound V.A.C., to be changed Tuesday, Tuesday and Tuesday, setting of continuous pressure at 125 mmhg with black foam. 3. Patient should be in contact isolation and should not be sharing a room with MRSA. This was explained to the R.N. yesterday as well as today. BRAYDEN
[2016-10-15] MEDS: HEPARIN SODIUM,PORCINE 5,000 UNIT/ML 1 ML VIAL SQ SCH ×4 (00:10→23:51)
[2016-10-15] MEDS: MEROPENEM 1 GM in SODIUM CHLORIDE 0.9% 100 ML IVPB SCH ×4 (00:10→23:52)
[2016-10-15 08:13] LABS: Basophils % (A) 0 %; CH 24.7; Eosinophils # (A) 0.1 k/uL (0-0.7); Eosinophils % (A) 1 %; HDW 2.84; HGB 8.7 gm/dL (11.4-16.0); Hypochromasia Moderate; Luc # (Auto) 0.27; Luc % (Auto) 3; Lymphocytes # (A) 1.5 k/uL (1.0-4.8); Lymphocytes % (A) 18 %; MCH 25.8 pg (25.0-35.0); MCHC 32.4 g/dL (31.0-37.0); MCV 79.7 fL (80.0-100.0); Mean Platelet Volume 6.9; Monocytes # (A) 0.6 k/uL (0-1.0); Monocytes % (A) 8 %; Neutrophils # (A) 5.6 k/uL (1.3-7.7); Neutrophils % (A) 69 %; RBC 3.38 m/uL (3.80-5.40); RDW 15.1 % (11.5-15.5)
[2016-10-15 08:36] LABS: Anion Gap 8 mmol/L; Blood Urea Nitrogen 13 mg/dL (7-17); Calcium 8.3 mg/dL (8.4-10.2); Carbon Dioxide 25 mmol/L (22-30); Chloride 105 mmol/L (98-107); Glucose 88 mg/dL (74-99); Non-African American GFR(MDRD) >60 (>60 ml/min/1.73 sqM); Potassium 3.2 mmol/L (3.5-5.1); Sodium 138 mmol/L (137-145)
[2016-10-15] MEDS: traMADol 50 MG TAB PO SCH ×3 (08:38→21:24)
[2016-10-15] MEDS: PANTOPRAZOLE 40 MG TABLET PO SCH (08:40)
--- NOTE | 2016-10-15 10:12 | PN ---
DATE OF SERVICE: 10/14/2016 INTERVAL HISTORY: Ms. Carrier is a 61-year-old female with a known history of hypertension, multiple sclerosis and also stage IV sacral decub ulcers, currently on a wound VAC and history of ESBL, UTI, admitted to the hospital with altered mental status and currently being treated for a urinary tract infection with meropenem. Blood cultures positive for E. coli and Proteus mirabilis, repeat blood cultures show no growth so far. Otherwise, ultrasound of the abdomen showed possible cholecystitis. Will consult General Surgery for further evaluation of that. Otherwise, patient denied any abdominal pain at this time. ID is following this patient. Patient today denied any complaints of chest pain or short of breath. No current abdominal pain. Patient is more awake and oriented x3. No fever. No chills. No acute overnight issues. The patient is on chronic indwelling Baltazar catheter. REVIEW OF SYSTEMS: CONSTITUTIONAL: No fever. No chills. RESPIRATORY: No cough or sputum production. CARDIOVASCULAR: No chest pain. No short of breath. ABDOMEN: No nausea, vomiting or abdominal pain. GENITOURINARY: Negative. ENDOCRINE: Negative. PSYCHIATRIC: Negative. All of the 14-point review of systems negative, except as above. CURRENT MEDICATIONS: Reviewed. PHYSICAL EXAMINATION: A 61-year-old female lying in the bed. Awake, alert, oriented x3. Appears to be in no apparent distress. VITALS: Blood pressure is 138/80, pulse 82, respirations 16, temperature afebrile, pulse ox 97% on 2 L nasal cannula. HEENT: Atraumatic, normocephalic. Neck is supple, no JVD. CVS EXAM: S1, S2 heard. No murmurs, no gallop. LUNGS: Bilateral air entry is present. No wheezing. No crackles. Nonlabored breathing. Abdomen is soft, nontender. Bowel sounds are present. No palpable organomegaly. TRAINING AND DEVELOPMENT DIRECTOR: Awake, alert, oriented, x3. Able to move all her extremities. Currently, patient is bedridden. EXTREMITIES: No edema. Pulses palpable bilaterally. No clubbing or cyanosis. PSYCHIATRIC: Cooperative. LABORATORY DATA: Reviewed. IMPRESSION: 1. Severe sepsis secondary to urinary tract infection. Urine culture growing Escherichia coli and Proteus bacteremia. Repeat blood cultures are negative so far. 2. Acute cholecystitis as per ultrasound of the abdomen. Patient does not have any active complaints now. Consult Surgery for further evaluation. 3. Acute kidney injury secondary to prerenal, improved now. 4. History of multiple sclerosis. Patient is bedridden. 5. Chronic indwelling Baltazar catheter, has been changed during this admission. 6. Lactic acidosis, resolved. 7. Hypertension. 8. Chronic pain syndrome. 9. Anxiety. 10. Deep venous thrombosis on heparin subcutaneous. DISCUSSION AND PLAN: Patient will be continued on antibiotics in the form of meropenem, vancomycin has been discontinued as there is no gram-positive growth. General Surgery consulted for evaluation of cholecystitis. Otherwise, the repeat blood culture negative. ID is following this patient. Continue current management. Further recommendations based on the clinical course.
[2016-10-15 15:28] VITALS: BMI 20.5
--- NOTE | 2016-10-15 16:18 | P.GSCN ---
History of Present Illness Consult date: 10/15/16 Reason for Consult: Cholecystitis History of present illness: Patient hospitalized with fevers and malaise. The patient was found to have blood culture showing E. coli and Proteus. This matched urinary cultures as well. The patient during her hospitalization was having some abdominal tenderness. A ultrasound showed gallstones with a thickened gallbladder wall. The patient denies abdominal pain at this point. She is tolerating her regular diet. She has been afebrile recently. Her liver enzymes are normal. Patient has an indwelling Rao catheter. Review of Systems The patient denies any acute changes in his vision or hearing, no dysphagia or odynophagia, no chest pain or shortness of breath, no headache, no runny nose, no rectal bleeding or melena, no unexplained weight loss Past Medical History Past Medical History: Hypertension, Pneumonia, Skin Disorder Additional Past Medical History / Comment(s): NEEDS WANDA FOR LIFTING, chronic RAO CATH, CAN USUALLY TAKE ORAL MEDS ONE AT A TIME OR CRUSH IN APPLESAUCE, Multiple Sclerosis since 1998.; sacral & L hip (mostly healed) decubitus ulcer with cellulitis ; malnutrition; Chronic UTI's, HTN in past but now labile and mostly low. History of Any Multi-Drug Resistant Organisms: ESBL, MRSA Year Discovered:: 05/31/16-MRSA; 10/11/16-ESBL E.coli MDRO Source:: MRSA-Buttock; ESBL URINE,BLOOD Past Surgical History: Appendectomy, Section, Tubal Ligation Additional Past Surgical History / Comment(s): DEBRIDEMENTS OF SACRAL PRESSURE SORE. Past Anesthesia/Blood Transfusion Reactions: No Reported Reaction Past Psychological History: Anxiety Additional Psychological History / Comment(s): Pt resides at [facility]. She is a wanda lift to wheelchair. She needs assist with all ADLs. She has confused times. Smoking Status: Former smoker Past Alcohol Use History: Occasional Additional Past Alcohol Use History / Comment(s): Pt started smoking in 1971 and quit 03/2016. She smoked < 1ppd. She used to drink alcohol but has not drank in 20 yrs. Past Drug Use History: None Reported - Past Family History Mother Family Medical History: No Reported History Additional Family Medical History / Comment(s): Mother is healthy Father Family Medical History: AFIB, Cancer, Diabetes Mellitus, Myocardial Infarction ( [place]) Additional Family Medical History / Comment(s): Father had lung cancer with lobectomy. Medications and Allergies Home Medications Medication Instructions Recorded Confirmed Type Amino Acids/Protein Hydrolys 30 ml PO TID@0700,1300,1900 05/10/16 10/11/16 History [Pro-Stat Supplement] Cholecalciferol [Vitamin D3] 2,000 unit PO HS 05/10/16 10/11/16 History Cyanocobalamin (Vitamin B-12) 1,000 mcg PO HS 05/10/16 10/11/16 History [Vitamin B-12] Melatonin 3 mg PO HS PRN 05/10/16 10/11/16 History Multivitamins, Thera [Multivitamin 1 tab PO HS 05/10/16 10/11/16 History (formulary)] Belding-3 Fatty Acids/Fish Oil [Fish 1 cap PO HS 05/10/16 10/11/16 History Oil 1,000 mg Softgel] Oxybutynin Chloride [Ditropan XL] 10 mg PO HS 05/10/16 10/11/16 History Polyethylene Glycol 3350 [Miralax] 17 gm PO QAM 05/10/16 10/11/16 History Baclofen 10 mg PO TID@0500,1300,1900 05/24/16 10/11/16 History ALPRAZolam [Xanax] 0.5 mg PO TID@0500,1300,2100 06/24/16 10/11/16 History Bisacodyl 10 mg PO DIRECTED PRN 06/24/16 10/11/16 History Acetaminophen [Tylenol] 650 mg PO Q4H PRN 08/16/16 10/11/16 History traMADol HCl [Ultram] 50 mg PO BID 08/16/16 10/11/16 History Ipratropium-Albuterol Nebulize 3 ml INHALATION RT-Q6H PRN 08/23/16 10/11/16 History [Duoneb 0.5 mg-3 mg/3 ml Soln] Loratadine [Claritin] 10 mg PO DAILY 09/20/16 10/11/16 History Ferrous Sulfate [Iron (65 MG 325 mg PO DAILY@0700 09/27/16 10/11/16 History Elemental)] Folic Acid 0.4 mg PO HS 09/27/16 10/11/16 History Nystatin [Nystop] 1 applic TOPICAL TID@0700,1300,1900 10/11/16 10/11/16 History Allergies Allergy/AdvReac Type Severity Reaction Status Date / Time No Known Allergies Allergy Verified 10/11/16 11:24 Surgical - Exam Vital Signs Temp Pulse Resp BP Pulse Ox 98.2 F 113 H 18 151/73 94 L 10/11/16 09:53 10/11/16 09:53 10/11/16 09:53 10/11/16 09:53 10/11/16 09:53 Physical exam: General: Well-developed, well-nourished HEENT: Normocephalic, sclerae nonicteric Abdomen: Nontender, nondistended Extremities: No edema Neuro: Alert and oriented Results - Labs 10/15/16 07:42 10/15/16 07:42 Abnormal Lab Results - Last 24 Hours (Table) 10/15/16 10/15/16 Range/Units 07:42 07:42 RBC 3.38 L (3.80-5.40) m/uL Hgb 8.7 L (11.4-16.0) gm/dL Hct 27.0 L (34.0-46.0) % MCV 79.7 L (80.0-100.0) fL Potassium 3.2 L (3.5-5.1) mmol/L Calcium 8.3 L (8.4-10.2) mg/dL Microbiology - Last 24 Hours (Table) 10/13/16 14:16 Blood Culture - Preliminary Blood No Growth after 24 hours Diabetes panel 10/15/16 Range/Units 07:42 Sodium 138 (137-145) mmol/L Potassium 3.2 L (3.5-5.1) mmol/L Chloride 105 (98-107) mmol/L Carbon Dioxide 25 (22-30) mmol/L BUN 13 (7-17) mg/dL Creatinine 0.57 (0.52-1.04) mg/dL Glucose 88 (74-99) mg/dL Calcium 8.3 L (8.4-10.2) mg/dL Calcium panel 10/15/16 Range/Units 07:42 Calcium 8.3 L (8.4-10.2) mg/dL Pituitary panel 10/15/16 Range/Units 07:42 Sodium 138 (137-145) mmol/L Potassium 3.2 L (3.5-5.1) mmol/L Chloride 105 (98-107) mmol/L Carbon Dioxide 25 (22-30) mmol/L BUN 13 (7-17) mg/dL Creatinine 0.57 (0.52-1.04) mg/dL Glucose 88 (74-99) mg/dL Calcium 8.3 L (8.4-10.2) mg/dL Adrenal panel 10/15/16 Range/Units 07:42 Sodium 138 (137-145) mmol/L Potassium 3.2 L (3.5-5.1) mmol/L Chloride 105 (98-107) mmol/L Carbon Dioxide 25 (22-30) mmol/L BUN 13 (7-17) mg/dL Creatinine 0.57 (0.52-1.04) mg/dL Glucose 88 (74-99) mg/dL Calcium 8.3 L (8.4-10.2) mg/dL Assessment and Plan (1) Urinary tract infection Narrative/Plan: The patient is asymptomatic currently. She is nontender on examination. Patient I discussed the findings of gallstones. We'll consider elective cholecystectomy as her urinary sepsis resolved. Consider outpatient follow-up. No further plans at this point. We'll sign off. Please contact if the patient's symptoms change. Status: Acute
[2016-10-15] MEDS ORDERED: Potassium Replacement Protocol 1 EACH MISC MISCELLANE PRN (17:18)
[2016-10-15] MEDS: POTASSIUM CHLORIDE 10 MEQ, LIDOCAINE 2% INJ 10 MG in SODIUM CHLORIDE 0.9% 100 ML IV SCH ×2 (19:15→20:09)
[2016-10-16] MEDS: HEPARIN SODIUM,PORCINE 5,000 UNIT/ML 1 ML VIAL SQ SCH ×3 (08:01→23:16)
[2016-10-16] MEDS: PANTOPRAZOLE 40 MG TABLET PO SCH (08:01)
[2016-10-16] MEDS: MEROPENEM 1 GM in SODIUM CHLORIDE 0.9% 100 ML IVPB SCH ×3 (08:01→23:16)
[2016-10-16] MEDS: traMADol 50 MG TAB PO SCH ×3 (08:14→21:45)
[2016-10-16] MEDS: ALPRAZolam 0.5 MG TAB PO PRN ×3 (08:14→21:45)
--- NOTE | 2016-10-16 10:34 | PN ---
DATE OF SERVICE: 10/15/2016 Reason for followup is ESBL and E. coli bacteremia secondary to urinary source. INTERVAL HISTORY: The patient is afebrile. She is currently breathing comfortably. Denies significant chest pain or shortness of breath, no cough. No abdominal pain or any diarrhea. On examination, blood pressure is 135/76 with pulse 87, temperature 98.7, she is 95% on 3 L nasal cannula. General description is a middle-aged female, lying in bed in no distress. RESPIRATORY SYSTEM: Unlabored breathing. Clear to auscultation anteriorly. HEART: S1, S2, regular rate and rhythm. ABDOMEN: Soft, no tenderness. LABS: Followup blood culture has been negative. DIAGNOSTIC IMPRESSION AND PLAN: 1. Patient with ESBL and Escherichia coli bacteremia secondary to urinary source. Surgery has seen the patient, clinically rule out cholecystitis. Patient responding to the meropenem. She will get a PICC line on Tuesday and will be able to finish therapy with IV Invanz 1 gm daily for another 10 days. 2. Stage IV sacral pressure ulcer, continue with the wound VAC to be changed Tuesday, Tuesday, Tuesday.
--- NOTE | 2016-10-16 11:50 | PN ---
DATE OF SERVICE: 10/15/2016 INTERVAL HISTORY: Ms. Carrier is a 61-year-old female with known history of hypertension and multiple sclerosis and also stage IV sacral decubitus ulcer on wound VAC, and history of ESBL UTI, admitted to the hospital with altered mental status and currently being treated for urinary tract infection with meropenem. Blood cultures are growing E. Coli and proteus mirabilis. Repeat cultures are negative so far. Ultrasound of the abdomen showed gallstones and possible cholecystitis. Results were reviewed with the patient and recommending elective cholecystectomy. Patient has not had abdominal pain at this time. Patient is more alert and oriented today. Denies any complaints of chest pain or shortness of breath. No other complaints. No nausea or vomiting. Follow up on blood cultures and ID final recommendations. REVIEW OF SYSTEMS: CONSTITUTIONAL: No fevers or chills. RESPIRATORY: No cough or sputum production. CARDIOVASCULAR: No chest pain or shortness of breath. ABDOMEN: No nausea, vomiting, abdominal pain. GENITOURINARY: No dysuria or hematuria. PSYCH: Alert, oriented. All other review of systems negative other than above. CURRENT MEDICATIONS: Reviewed. PHYSICAL EXAMINATION: A 61-year-old female, lying in the bed, comfortably, awake, alert, oriented, x3, appears in no apparent distress. VITALS: Blood pressure is 138/71, pulse is 96, respiration 18, temperature afebrile, pulse ox 95% on room air. HEENT: Normocephalic, atraumatic. NECK: Supple. No JVD. CVS exam: S1 and S2 heard. No murmurs, no rub. LUNGS: Bilateral good air entry is present. No wheezing. ABDOMEN: Soft. Bowel sounds present. PARTY PLANNER: Awake, alert, oriented x3. Able to move all extremities. EXTREMITIES: No edema. Pulses palpable bilaterally. No clubbing or cyanosis. PSYCHIATRIC: Cooperative. LABORATORY DATA: WBC 8.0, hemoglobin 8.7, platelets 118. Sodium 138, potassium 3.2, chloride 102, bicarb is 25. BUN 13, creatinine 0.7, calcium 8.3. IMPRESSION: 1. Severe sepsis secondary to urinary tract infection. Urine culture growing proteus mirabilis and Escherichia coli, currently on meropenem. 2. Escherichia coli and proteus bacteremia. Repeat cultures are negative so far. 3. Gallstones with possible acute cholecystitis. No surgical intervention. Elective cholecystectomy as per general surgery. 4. Acute kidney injury, most likely prerenal, resolved now. 5. History of multiple sclerosis. Patient is bedridden. 6. Chronic indwelling Baltazar catheter, has been changed during admission. 7. Lactic acidosis. 8. Hypertension. 9. Chronic pain syndrome. 10. Anxiety. 11. DVT prophylaxis. RECOMMENDATIONS AND PLAN: Current antibiotics and final recommendations per ID. Anticipate discharge in the next 24 to 48 hours.
[2016-10-17] MEDS: traMADol 50 MG TAB PO SCH ×3 (07:44→21:53)
[2016-10-17] MEDS: MEROPENEM 1 GM in SODIUM CHLORIDE 0.9% 100 ML IVPB SCH ×2 (07:45→15:56)
[2016-10-17] MEDS: PANTOPRAZOLE 40 MG TABLET PO SCH (07:45)
[2016-10-17] MEDS: HEPARIN SODIUM,PORCINE 5,000 UNIT/ML 1 ML VIAL SQ SCH ×2 (07:45→15:56)
[2016-10-17] MEDS: ALPRAZolam 0.5 MG TAB PO PRN (15:56)
[2016-10-18] MEDS: MEROPENEM 1 GM in SODIUM CHLORIDE 0.9% 100 ML IVPB SCH ×3 (00:10→16:03)
[2016-10-18] MEDS: HEPARIN SODIUM,PORCINE 5,000 UNIT/ML 1 ML VIAL SQ SCH ×3 (00:11→16:08)
[2016-10-18 07:39] VITALS: RESP 16
[2016-10-18] MEDS: PANTOPRAZOLE 40 MG TABLET PO SCH (07:57)
[2016-10-18] MEDS: traMADol 50 MG TAB PO SCH ×2 (08:05→16:03)
[2016-10-18 08:08] LABS: Anion Gap 8 mmol/L; Blood Urea Nitrogen 18 mg/dL (7-17); Calcium 8.8 mg/dL (8.4-10.2); Carbon Dioxide 26 mmol/L (22-30); Chloride 107 mmol/L (98-107); Glucose 94 mg/dL (74-99); Non-African American GFR(MDRD) >60 (>60 ml/min/1.73 sqM); Potassium 4.2 mmol/L (3.5-5.1); Sodium 141 mmol/L (137-145)
[2016-10-18 08:11] LABS: Basophils # (A) 0.1 k/uL (0-0.2); Basophils % (A) 1 %; CH 24.6; CHCM 29.9; Eosinophils # (A) 0.2 k/uL (0-0.7); Eosinophils % (A) 2 %; HCT 29.7 % (34.0-46.0); HDW 2.62; Hypochromasia Marked; Luc % (Auto) 3; Lymphocytes % (A) 19 %; MCHC 30.4 g/dL (31.0-37.0); MCV 82.2 fL (80.0-100.0); Mean Platelet Volume 6.6; Monocytes # (A) 0.5 k/uL (0-1.0); Monocytes % (A) 5 %; Neutrophils # (A) 7.5 k/uL (1.3-7.7); Neutrophils % (A) 71 %; RBC 3.61 m/uL (3.80-5.40); RDW 15.9 % (11.5-15.5); WBC 10.5 k/uL (3.8-10.6); WBC (Perox) 10.54
--- NOTE | 2016-10-18 10:35 | PN ---
DATE OF SERVICE: 10/17/2016 REASON FOR FOLLOW-UP: ESBL E. coli, UTI and bacteremia. INTERVAL HISTORY: The patient is afebrile. She is more awake, alert, breathing comfortably. Denies significant chest pain, shortness of breath or cough. No abdominal pain or diarrhea. On examination, blood pressure 136/73 with a pulse of 93, temperature 97.1, she is 97% on room air. General description is a middle-aged female lying in bed in no distress. RESPIRATORY SYSTEM: Unlabored breathing. Clear to auscultation anteriorly. HEART: S1, S2. Regular, rate and rhythm. ABDOMEN: Soft, no tenderness. LABS: Hemoglobin is 8.7, white count 8.0 with a BUN of 13, creatinine 0.57. Follow up blood cultures have been negative. DIAGNOSTIC IMPRESSION AND PLAN: 1. Patient with ESBL E. coli and proteus mirabilis bacteremia source is urinary. The patient will be able to get a PICC line tomorrow. She will be switched over to Invanz 1 gram daily for another 10 days to finish course of therapy. 2. Patient with stage IV sacral pressure ulcer, will continue with wound VAC to be changed Tuesday, Tuesday and Tuesday. TRANGD
--- NOTE | 2016-10-18 11:27 | PN ---
DATE OF SERVICE: 10/17/2016 INTERVAL HISTORY: Ms. Wallis is a 61-year-old female with known history of hypertension and multiple sclerosis status post sacral decub ulcer, currently on wound VAC and history of ESBL, urinary tract infection admitted to the hospital with altered mental status which is much improved now. Currently the patient being treated with Meropenem for urinary tract infection as well as bacteremia with Proteus and E. coli. Repeat blood cultures have been negative. Anticipate discharge with PICC line to continue antibiotic course, possibly on Tuesday. The patient denied any chest pain or short of breath. No nausea, vomiting or abdominal pain. Tolerating p.o. diet. No acute overnight issues. All other review of systems negative except as above. CURRENT MEDICATIONS: Reviewed. PHYSICAL EXAMINATION: A 61 -year-old female lying in bed comfortably, awake, alert and oriented times two to three. Appears in no apparent distress. VITALS: Blood pressure is 126/60, pulse is 82, respiratory rate 16, temperature afebrile. Pulse ox 97% on room air. HEENT: Atraumatic. Normocephalic. NECK: Supple. No JVD. CARDIOVASCULAR: S1, S2 heard. No murmurs or gallop. LUNGS: Bilateral air entry is present. No wheezing. No crackles. Nonlabored breathing. ABDOMEN: Soft, nontender. Bowel sounds present. CENTRAL NERVOUS SYSTEM: Awake, alert and oriented times three. The patient does have bilateral lower extremity weakness/paralysis. PSYCHIATRY: Cooperative. EXTREMITIES: No edema. LABORATORY DATA: Reviewed. IMPRESSION: 1. Severe sepsis secondary to urinary tract infection with Escherichia coli and Proteus. 2. Escherichia coli and Proteus bacteremia. Repeat cultures have been negative. 3. Multiple sclerosis and bilateral lower extremity paralysis currently bed ridden. 4. Stage 4 decub, on wound VAC. No infection noted. 5. Gallstones with possible acute cholecystitis,no surgery now. Elective cholecystectomy as per general surgery. 6. Acute kidney injury, most likely prerenal resolved. 7. Chronic indwelling Baltazar catheter, change. 8. Lactic acidosis. 9. Hypertension. 10. Chronic pain. 11. Anxiety. 12. DVT proph. DISCUSSION AND PLAN: The patient will be continued on current management including antibiotics and encourage p.o. intake. PICC line tomorrow and discharge antibiotics. Further recommendations based on the clinical course. [id number]
--- NOTE | 2016-10-18 11:29 | PN ---
DATE OF SERVICE: 10/16/2016 INTERVAL HISTORY: Ms. Carrier is a 61-year-old female with a known history of hypertension and multiple sclerosis, bedridden, bilateral lower extremity weakness, stage V sacral decubitus ulcer on wound VAC and history of ESBL UTI admitted to the hospital with altered mental status and currently being treated for a urinary tract infection with meropenem. Blood cultures are growing E. Coli and Proteus mirabilis. Repeat cultures are negative so far. Ultrasound of the abdomen showed gallstones and possible cholecystitis. ( ) no surgical recommendations for surgery. Otherwise, patient will be having PICC line tomorrow and antibiotic course per ID for the next 12 days. Patient today denied any complaints of chest pain or short of breath. No nausea, vomiting or abdominal pain. Patient is awake, alert and oriented x2 to 3. No acute overnight issues. REVIEW OF SYSTEMS: CONSTITUTIONAL: No fever, no chills. No chest pain or short of breath. No nausea, vomiting or abdominal pain. Tolerating p.o. diet. All other review of systems negative except as above. CURRENT MEDICATIONS: Reviewed. PHYSICAL EXAMINATION: A 61-year-old female lying in bed comfortably, awake, alert, oriented x2 to 3. VITALS: Blood pressure 113/60. Pulse is 89, respirations 18, temperature afebrile, pulse ox 96% on room air. HEENT: Atraumatic, normocephalic. Neck is supple. No JVD. CVS EXAM: S1, S2 heard. No murmurs, no gallop. LUNGS: Bilateral air entry is present. No wheeze. No crackles. ABDOMEN: Soft, nontender. Bowel sounds present. 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 Patient does have bilateral lower extremity weakness and bedridden. Able to move upper extremities bilaterally. PSYCHIATRIC: Cooperative. EXTREMITIES: No edema. Pulses palpable bilaterally. LABORATORY DATA: Reviewed. IMPRESSION: 1. Severe sepsis secondary to urinary tract infection due to Escherichia coli and Proteus mirabilis. 2. Escherichia coli and Proteus mirabilis bacteremia. Repeat cultures are negative so far. 3. Gallstones with possible cholecystitis, no active chest pain. Surgery recommended elective cholecystectomy as an outpatient. 4. Acute kidney injury, most likely prerenal resolved now. 5. History of multiple sclerosis and the patient is bedridden. 6. Chronic indwelling Baltazar catheter was changed during admission. 7. Lactic acidosis resolved. 8. Hypertension. 9. Chronic pain. 10. Anxiety. 11. Deep venous thrombosis prophylaxis. DISCUSSION AND PLAN: Patient is currently ( ) meropenem. Anticipate discharge with PICC line possibly on Tuesday. Further recommendations based on the clinical course.
[2016-10-18] MEDS ORDERED: SODIUM CHLORIDE 0.9% 1,000 ML IV ONE (14:26)
[2016-10-18] MEDS ORDERED: LIDOCAINE 2% INJ 20 MG/ML SQ ONE (14:57)
--- NOTE | 2016-10-18 14:57 | DS ---
DATE OF ADMISSION: 10/11/2016 DATE OF DISCHARGE: 10/18/2016 DISCHARGE DIAGNOSES: 1. Severe sepsis secondary to urinary tract infection with Escherichia coli and Proteus. 2. Escherichia coli and Proteus bacteremia, repeat cultures are negative. 3. History of ESBL urinary tract infection. 4. Multiple sclerosis and bilateral lower extremity paralysis, currently bedridden. 5. Stage IV decub ulcer, currently on wound VAC. 6. Gallstones with possible acute cholecystitis. Surgery is recommended, elective cholecystectomy as an outpatient. 7. Acute kidney injury, most likely prerenal resolved. 8. Chronic indwelling Baltazar catheter, changed during the admission. 9. Lactic acidosis improved, resolved. 10. Hypertension. 11. Chronic pain. 12. Anxiety. 13. Deep venous thrombosis prophylaxis with heparin subQ. HOSPITAL COURSE: Ms. Wallis is a 61-year-old female with known history of multiple sclerosis and other multiple medical problems as discussed above, admitted to the hospital with altered mental status and found to have urinary tract infection with urine culture growing E. coli and Proteus. Patient also had blood cultures positive for E. coli and Proteus. Patient was started on meropenem while in the hospital. Patient's white count has much improved now and normalized. Patient has clinical status ( ) currently at baseline and alert and oriented x3. Otherwise, patient was continued on wound VAC as well. Patient was seen by ID and recommended to continue the antibiotics in the form of ertapenem for the next 10 more days to complete the antibiotic course. Otherwise, patient is clinically stable to be discharged back to extended care facility. DISCHARGE PHYSICAL EXAMINATION: A 61-year-old female lying in the bed comfortably. Awake, alert, oriented x3. Appears to be in no apparent distress. VITALS: Blood pressure is 104/64, pulse is 90, respirations 16, temperature afebrile, pulse ox 96% on room air. Laboratory data reviewed. WBC 10.4, hemoglobin 9.0, platelets 364. Sodium 141, potassium 4.2, chloride 107, bicarb is 26. BUN 18, creatinine 0.52. DISCHARGE PHYSICAL EXAMINATION: HEENT: Atraumatic, normocephalic. Neck is supple. No JVD. CVS EXAM: S1, S2 heard. No murmurs, no gallop. LUNGS: Bilateral air entry is present. ABDOMEN: Soft, nontender. 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 Bilateral lower extremity paralysis. PSYCHIATRIC: Cooperative. EXTREMITIES: No edema. Pulses palpable bilaterally. Discharge medications include: 1. ProStat supplement 30 mL p.o. t.i.d. 2. Vitamin D3 two thousand units p.o. at bedtime. 3. Vitamin B12 one thousand mcg p.o. at bedtime. 4. Melatonin 3 mg p.o. at bedtime. 5. Multivitamins 1 tablet p.o. at bedtime. 6. Overgaard-3 fatty acids 1 capsule p.o. at bedtime. 7. Oxybutynin 10 mg p.o. at bedtime. 8. Polyethylene glycol 17 gm p.o. q.a.m. p.r.n. for constipation. 9. Baclofen 10 mg p.o. t.i.d. 10. Alprazolam 0.5 mg p.o. t.i.d. p.r.n. for anxiety. 11. Bisacodyl 10 mg p.o. a.c. as directed p.r.n. for constipation. 12. Tylenol 650 mg p.o. q.4 hourly p.r.n. for pain. 13. Ultram 50 mg p.o. b.i.d. 14. DuoNeb 3 mL inhalation q.i.d. p.r.n. 15. Loratadine 10 mg p.o. daily. 16. Ferrous sulfate 325 mg p.o. daily. 17. Folic acid 0.4 mg p.o. at bedtime. 18. Nystatin one application topical t.i.d. 19. Ertapenem 1 gm IV piggyback q.24 hours for 10 days. Patient will be discharged to extended care facility in stable condition. Activity as tolerated. Heart-healthy diet and continue with the indwelling Baltazar catheter and follow with ( ) in [address] Luicus Valencia in 1 to 2 days. Time taken more than 35 minutes including 18 minutes counseling the patient and coordinating care.
--- NOTE | 2016-10-18 15:19 | IR ---
PICC LINE PLACEMENT: HISTORY: Infection requiring long-term antibiotic therapy PROCEDURE: Ultrasound and fluoroscopic guidance of PICC line placement. COMPLICATIONS: None ANESTHESIA: 1. 1% Lidocaine locally. FINDINGS/TECHNIQUE: The procedure was explained to the patient. The risks, complications, benefits and alternatives were discussed and any questions were answered. Informed consent was obtained. The patient was placed supine on the fluoroscopic table and prepped and draped in the usual sterile [facility] ion. Utilizing a 21 gauge needle and sonographic and fluoroscopic guidance, access in the vein was achieved and there is placement of a 0.018 guidewire. The vein is patent. A 4-F sheath was placed o trina the guidewire. The guidewire and dilator were removed and a 4-F. PICC line was placed through th e sheath with the tip at the level of the SVC. The sheath was removed, the catheter was flushed and sutured into position. The patient was stable throughout the procedure and remained stable upon disc harge from the Department of Radiology. The vein puncture was patent under ultrasound. A remy scale image was obtained to document patency of the vein punctured. All elements of the maximal barrier technique were utilized. FLUOROSCOPY TIME: 0.8 minute IMPRESSION: Successful PICC line placement under ultrasound and fluoroscopic guidance.
[2016-10-18 17:02] VITALS: BP 114/67; PULSE 89; TEMP 99.4
--- NOTE | 2016-10-19 08:45 | PN ---
DATE OF SERVICE: 10/18/2016 Reason for follow-up is ESBL Escherichia coli bacteremia and stage IV sacral pressure ulcer. INTERVAL HISTORY: The patient was seen on rounds this morning. The patient awaiting for PICC line prior to discharge. The patient is more awake and alert. She was breathing comfortably. Denies significant chest pain or shortness of breath, cough. No abdominal pain. No diarrhea. On examination, blood pressure is 140/67, pulse of 89, temperature 98. She is 94% on room air. General description is a middle-age female lying in bed in no distress. RESPIRATORY SYSTEM: Unlabored breathing. Clear to auscultation anteriorly. HEART: S1, S2. Regular rate and rhythm. ABDOMEN: Soft, no tenderness. EXTREMITIES: No edema feet. Sacral wound is currently covered with wound V.A.C. LABS: Hemoglobin is 9 with a white count of 10.5, BUN of 18, creatinine 0.52. DIAGNOSTIC IMPRESSION AND PLAN: 1. Patient with ESBL Escherichia coli and Proteus bacteremia, source is urinary. Patient's follow up blood culture has been negative for the following day. Patient at this time will be switched over to Invanz 1 gram daily for another 10 days to finish a total 3 day course of therapy from negative blood culture. 2. Patient with sacral pressure ulcer. Continue with wound V.A.C.
== END 2016-10-18 19:19 | DRG 871 ==
LOC: EC 09:52 → 6SEL 12:18 → 5MS5E 10-13 00:12
PROVIDERS: ADMIT Internal Medicine; ATTEND Internal Medicine
PROC: 02HV33Z Insertion of Infusion Device into Superior Vena Cava, Percutaneous Approach (ICD-10-PCS; principal; 2016-10-18 08:30)
PROC: B548ZZA Ultrasonography of Superior Vena Cava, Guidance (ICD-10-PCS; 2016-10-18 08:30)
DX: A41.51 Sepsis due to Escherichia coli [E. coli] (principal); L89.154 Pressure ulcer of sacral region, stage 4; N17.9 Acute kidney failure, unspecified; E87.2 Acidosis; K80.00 Calculus of gallbladder with acute cholecystitis without obstruction; E46 Unspecified protein-calorie malnutrition; G82.20 Paraplegia, unspecified; E87.0 Hyperosmolality and hypernatremia; N39.0 Urinary tract infection, site not specified; R65.20 Severe sepsis without septic shock; A41.4 Sepsis due to anaerobes; G35 Multiple sclerosis; I10 Essential (primary) hypertension; F41.9 Anxiety disorder, unspecified; G89.4 Chronic pain syndrome; E86.0 Dehydration; E87.8 Other disorders of electrolyte and fluid balance, not elsewhere classified; R33.9 Retention of urine, unspecified; Z16.12 Extended spectrum beta lactamase (ESBL) resistance; Z74.01 Bed confinement status; Z90.49 Acquired absence of other specified parts of digestive tract; Z87.440 Personal history of urinary (tract) infections; Z86.14 Personal history of Methicillin resistant Staphylococcus aureus infection; Z87.891 Personal history of nicotine dependence; Z79.899 Other long term (current) drug therapy
CPT/HCPCS: 36415; 36569; 70450; 71010; 76700; 76937; 77001; 80048; 80053; 80202; 81001; 82550; 82553; 83605; 84132; 84484; 85025; 85610; 85730; 87040; 87077; 87086; 87186; 87502; 93005; 96365; 96366; 96368; 96375; 99291

== ENCOUNTER 2016-10-19 08:00 | Inpatient (IN) | payer MEDICARE, BC ==
[2016-10-19] MEDS ORDERED: LORazepam 2 MG/ML SYRINGE IV STA (08:20)
[2016-10-19] MEDS ORDERED: SODIUM CHLORIDE 0.9% 500 ML IV STA (08:20)
[2016-10-19] MEDS ORDERED: SODIUM CHLORIDE 0.9% 1,000 ML IV STA (08:20)
[2016-10-19] MEDS ORDERED: levETIRAcetam IV 1,000 MG in SALINE 1 100ML.BAG IVPB STA (08:25)
[2016-10-19 08:36] LABS: Basophils % (A) 0 %; CH 24.4; CHCM 30.1; Eosinophils % (A) 0 %; HCT 29.6 % (34.0-46.0); HDW 2.57; HGB 9.1 gm/dL (11.4-16.0); Hypochromasia Moderate; Luc # (Auto) 0.23; Luc % (Auto) 2; Lymphocytes # (A) 1.8 k/uL (1.0-4.8); Lymphocytes % (A) 15 %; MCH 24.7 pg (25.0-35.0); MCHC 30.5 g/dL (31.0-37.0); Mean Platelet Volume 6.4; Monocytes # (A) 0.5 k/uL (0-1.0); Monocytes % (A) 4 %; Neutrophils # (A) 9.5 k/uL (1.3-7.7); Neutrophils % (A) 79 %; RBC 3.66 m/uL (3.80-5.40); WBC 12.1 k/uL (3.8-10.6); WBC (Perox) 12.11
--- NOTE | 2016-10-19 08:45 | ED ---
General Adult HPI - General Chief complaint: Altered Mental Status Stated complaint: altered mental status Time Seen by Provider: 10/19/16 08:03 Source: EMS, RN notes reviewed, old records reviewed Mode of arrival: EMS Limitations: altered mental status - History of Present Illness Initial comments: This is a 61-year-old female here for evaluation. Patient is brought in by EMS from the labs for evaluation of altered mental status, patient does appear to be seizing. Patient will give accurate history secondary to condition, that is at bedside. Patient hit from EMS patient's chart states patient is DO NOT RESUSCITATE just discharged yesterday from recent hospital illness from sepsis. Patient does sore from MS and is usually low functioning, no prior history of seizures - Related Data Home Medications Medication Instructions Recorded Confirmed Cholecalciferol [Vitamin D3] 2,000 unit PO HS 05/10/16 10/19/16 Melatonin 3 mg PO HS PRN 05/10/16 10/19/16 [place]-3 Fatty Acids/Fish Oil [Fish 1 cap PO HS 05/10/16 10/19/16 Oil 1,000 mg Softgel] Oxybutynin Chloride [Ditropan XL] 10 mg PO HS 05/10/16 10/19/16 Polyethylene Glycol 3350 [Miralax] 17 gm PO QAM 05/10/16 10/19/16 Baclofen 10 mg PO TID 05/24/16 10/19/16 Bisacodyl 10 mg PO DAILY PRN 06/24/16 10/19/16 Acetaminophen [Tylenol] 650 mg PO Q4H PRN 08/16/16 10/19/16 Ipratropium-Albuterol Nebulize 3 ml INHALATION RT-Q6H PRN 08/23/16 10/19/16 [Duoneb 0.5 mg-3 mg/3 ml Soln] Loratadine [Claritin] 10 mg PO DAILY 09/20/16 10/19/16 Ferrous Sulfate [Iron (65 MG 325 mg PO DAILY 09/27/16 10/19/16 Elemental)] Folic Acid 0.4 mg PO HS 09/27/16 10/19/16 ALPRAZolam [Xanax] 0.5 mg PO TID 10/19/16 10/19/16 Amino Acids/Protein Hydrolys 30 ml PO DAILY 10/19/16 10/19/16 [Pro-Stat Supplement] Multivit-Min/FA/Lycopene/Lut 1 tab PO DAILY 10/19/16 10/19/16 [Centrum Silver Tablet] Vitamin B-12/Folic Acid 500-400mg 1 tab PO HS 10/19/16 10/19/16 traMADol HCl [Ultram] 50 mg PO Q8H PRN 10/19/16 10/19/16 Previous Rx's Medication Instructions Recorded Ertapenem [INVanz] 1 gm IVPB Q24H 10 Days 10/18/16 Allergies Allergy/AdvReac Type Severity Reaction Status Date / Time No Known Allergies Allergy Verified 10/19/16 08:28 Review of Systems ROS Statement: Those systems with pertinent positive or pertinent negative responses have been documented in the HPI. ROS Other: All systems not noted in ROS Statement are negative. Past Medical History Past Medical History: Hypertension, Pneumonia, Skin Disorder Additional Past Medical History / Comment(s): NEEDS WANDA FOR LIFTING, chronic RAO CATH, CAN USUALLY TAKE ORAL MEDS ONE AT A TIME OR CRUSH IN APPLESAUCE, Multiple Sclerosis since 1998.; sacral & L hip (mostly healed) decubitus ulcer with cellulitis ; malnutrition; Chronic UTI's, HTN in past but now labile and mostly low. History of Any Multi-Drug Resistant Organisms: ESBL, MRSA Date of last positivie culture/infection: 05/31/16-MRSA; 10/11/16-ESBL E.coli MDRO Source:: MRSA-Buttock; ESBL URINE,BLOOD Past Surgical History: Appendectomy, Section, Tubal Ligation Additional Past Surgical History / Comment(s): DEBRIDEMENTS OF SACRAL PRESSURE SORE. Past Anesthesia/Blood Transfusion Reactions: No Reported Reaction Past Psychological History: Anxiety Additional Psychological History / Comment(s): Pt resides at [facility]. She is a wanda lift to wheelchair. She needs assist with all ADLs. She has confused times. Smoking Status: Former smoker Past Alcohol Use History: Occasional Additional Past Alcohol Use History / Comment(s): Pt started smoking in 1971 and quit 03/2016. She smoked < 1ppd. She used to drink alcohol but has not drank in 20 yrs. Past Drug Use History: None Reported - Past Family History Mother Family Medical History: No Reported History Additional Family Medical History / Comment(s): Mother is healthy Father Family Medical History: AFIB, Cancer, Diabetes Mellitus, Myocardial Infarction ( [place]) Additional Family Medical History / Comment(s): Father had lung cancer with lobectomy. General Exam - General Exam Comments Initial Comments: Focal, simple partial seizure face left Limitations: altered mental status General appearance: alert, in no apparent distress Head exam: Present: atraumatic, normocephalic, normal inspection Eye exam: Present: normal appearance, PERRL, EOMI. Absent: scleral icterus, conjunctival injection, periorbital swelling ENT exam: Present: normal exam, mucous membranes moist Neck exam: Present: normal inspection. Absent: tenderness, meningismus, lymphadenopathy Respiratory exam: Present: normal lung sounds bilaterally. Absent: respiratory distress, wheezes, rales, rhonchi, stridor Cardiovascular Exam: Present: regular rate, normal rhythm, normal heart sounds. Absent: systolic murmur, diastolic murmur, rubs, gallop, clicks GI/Abdominal exam: Present: soft, normal bowel sounds. Absent: distended, tenderness, guarding, rebound, rigid Extremities exam: Present: normal inspection, full ROM, normal capillary refill. Absent: tenderness, pedal edema, joint swelling, calf tenderness Back exam: Present: normal inspection Neurological exam: Present: alert, oriented X3, CN II-XII intact Psychiatric exam: Present: normal affect, normal mood Skin exam: Present: warm, dry, intact, normal color. Absent: rash Course Vital Signs 10/19/16 10/19/16 10/19/16 08:02 09:07 10:00 Temperature 100.9 F H Pulse Rate 96 83 61 Respiratory 20 Rate Blood Pressure 150/69 107/58 166/72 O2 Sat by Pulse 97 100 100 Oximetry - Reevaluation(s) Reevaluation #1: 10/19/16 08:44 Patient seizure at this time appears to have stopped Reevaluation #2: 10/19/16 10:27 Patient seizure is resolved EKG Findings - EKG Comments: EKG Findings:: EKG shows normal sinus rhythm rate of 92, MA 134, QRS 82, QTC 435 Medical Decision Making - Medical Decision Making 61 female well-known to this facility for sepsis, bladder infection, sacral decub and UTI. Patient having continued fever today with simple partial seizure , will start antiepileptics for neuro evaluation. IV antibiotics and fluid resuscitation - Lab Data Result diagrams: 10/19/16 08:08 10/19/16 08:08 Lab Results 10/19/16 10/19/16 10/19/16 Range/Units 08:08 08:08 08:08 WBC 12.1 H (3.8-10.6) k/uL RBC 3.66 L (3.80-5.40) m/uL Hgb 9.1 L (11.4-16.0) gm/dL Hct 29.6 L (34.0-46.0) % MCV 81.0 (80.0-100.0) fL MCH 24.7 L (25.0-35.0) pg MCHC 30.5 L (31.0-37.0) g/dL RDW 16.0 H (11.5-15.5) % Plt Count 439 (150-450) k/uL Neutrophils % 79 % Lymphocytes % 15 % Monocytes % 4 % Eosinophils % 0 % Basophils % 0 % Neutrophils # 9.5 H (1.3-7.7) k/uL Lymphocytes # 1.8 (1.0-4.8) k/uL Monocytes # 0.5 (0-1.0) k/uL Eosinophils # 0.0 (0-0.7) k/uL Basophils # 0.0 (0-0.2) k/uL Hypochromasia Moderate PT (9.0-12.0) sec INR (<1.1) APTT (22.0-30.0) sec Sodium 141 (137-145) mmol/L Potassium 4.5 (3.5-5.1) mmol/L Chloride 105 (98-107) mmol/L Carbon Dioxide 25 (22-30) mmol/L Anion Gap 11 mmol/L BUN 19 H (7-17) mg/dL Creatinine 0.53 (0.52-1.04) mg/dL Est GFR (MDRD) Af Amer >60 (>60 ml/min/1.73 sqM) Est GFR (MDRD) Non-Af >60 (>60 ml/min/1.73 sqM) Glucose 97 (74-99) mg/dL Plasma Lactic Acid Александр (0.7-2.0) mmol/L Calcium 9.1 (8.4-10.2) mg/dL Phosphorus 3.5 (2.5-4.5) mg/dL Magnesium 2.0 (1.6-2.3) mg/dL Total Bilirubin 0.5 (0.2-1.3) mg/dL AST 26 (14-36) U/L ALT 44 (9-52) U/L Alkaline Phosphatase 114 (38-126) U/L Total Creatine Kinase 184 H (30-135) U/L CK-MB (CK-2) 1.8 (0.0-2.4) ng/mL CK-MB (CK-2) Rel Index 1.0 Troponin I 0.033 (0.000-0.034) ng/mL Total Protein 7.5 (6.3-8.2) g/dL Albumin 3.2 L (3.5-5.0) g/dL Urine Color Urine Appearance (Clear) Urine pH (5.0-8.0) Ur Specific [place] (1.001-1.035) Urine Protein (Negative) Urine Glucose (UA) (Negative) Urine Ketones (Negative) Urine Blood (Negative) Urine Nitrite (Negative) Urine Bilirubin (Negative) Urine Urobilinogen (<2.0) mg/dL Ur Leukocyte Esterase (Negative) Urine RBC (0-5) /hpf Urine WBC (0-5) /hpf Ur Squamous Epith Cells (0-4) /hpf Urine Mucus (None) /hpf 10/19/16 10/19/16 10/19/16 Range/Units 08:08 08:08 08:30 WBC (3.8-10.6) k/uL RBC (3.80-5.40) m/uL Hgb (11.4-16.0) gm/dL Hct (34.0-46.0) % MCV (80.0-100.0) fL MCH (25.0-35.0) pg MCHC (31.0-37.0) g/dL RDW (11.5-15.5) % Plt Count (150-450) k/uL Neutrophils % % Lymphocytes % % Monocytes % % Eosinophils % % Basophils % % Neutrophils # (1.3-7.7) k/uL Lymphocytes # (1.0-4.8) k/uL Monocytes # (0-1.0) k/uL Eosinophils # (0-0.7) k/uL Basophils # (0-0.2) k/uL Hypochromasia PT 10.9 (9.0-12.0) sec INR 1.1 (<1.1) APTT 28.9 (22.0-30.0) sec Sodium (137-145) mmol/L Potassium (3.5-5.1) mmol/L Chloride (98-107) mmol/L Carbon Dioxide (22-30) mmol/L Anion Gap mmol/L BUN (7-17) mg/dL Creatinine (0.52-1.04) mg/dL Est GFR (MDRD) Af Amer (>60 ml/min/1.73 sqM) Est GFR (MDRD) Non-Af (>60 ml/min/1.73 sqM) Glucose (74-99) mg/dL Plasma Lactic Acid Александр 2.1 H (0.7-2.0) mmol/L Calcium (8.4-10.2) mg/dL Phosphorus (2.5-4.5) mg/dL Magnesium (1.6-2.3) mg/dL Total Bilirubin (0.2-1.3) mg/dL AST (14-36) U/L ALT (9-52) U/L Alkaline Phosphatase (38-126) U/L Total Creatine Kinase (30-135) U/L CK-MB (CK-2) (0.0-2.4) ng/mL CK-MB (CK-2) Rel Index Troponin I (0.000-0.034) ng/mL Total Protein (6.3-8.2) g/dL Albumin (3.5-5.0) g/dL Urine Color Yellow Urine Appearance Clear (Clear) Urine pH 7.5 (5.0-8.0) Ur Specific [place] 1.014 (1.001-1.035) Urine Protein 1+ H (Negative) Urine Glucose (UA) Negative (Negative) Urine Ketones Negative (Negative) Urine Blood Small H (Negative) Urine Nitrite Negative (Negative) Urine Bilirubin Negative (Negative) Urine Urobilinogen <2.0 (<2.0) mg/dL Ur Leukocyte Esterase Small H (Negative) Urine RBC 16 H (0-5) /hpf Urine WBC 10 H (0-5) /hpf Ur Squamous Epith Cells 1 (0-4) /hpf Urine Mucus Rare H (None) /hpf - Radiology Data Radiology results: report reviewed (CT brain is negative for acute disease, chest x-ray is negative for acute disease), image reviewed Disposition Clinical Impression: New onset seizure, Urinary tract infection, Stage IV pressure ulcer of sacral region, Septic shock, Altered mental status Disposition: ADMITTED IP TO THIS HOSP Condition: Fair Referrals: Lucius Valencia MD [Primary Care Provider] - 1-2 days
[2016-10-19 08:46] LABS: ALT 44 U/L (9-52); AST 26 U/L (14-36); Alkaline Phosphatase 114 U/L (38-126); Anion Gap 11 mmol/L; Blood Urea Nitrogen 19 mg/dL (7-17); Calcium 9.1 mg/dL (8.4-10.2); Carbon Dioxide 25 mmol/L (22-30); Chloride 105 mmol/L (98-107); Glucose 97 mg/dL (74-99); Non-African American GFR(MDRD) >60 (>60 ml/min/1.73 sqM); Phosphorous 3.5 mg/dL (2.5-4.5); Potassium 4.5 mmol/L (3.5-5.1); Sodium 141 mmol/L (137-145); Total Bilirubin 0.5 mg/dL (0.2-1.3); Total Protein 7.5 g/dL (6.3-8.2)
[2016-10-19 08:47] LABS: INR 1.1 (<1.1); Partial Thromboplastin Time 28.9 sec (22.0-30.0); Prothrombin Time 10.9 sec (9.0-12.0)
[2016-10-19 08:50] LABS: Appearance,Urine Clear (Clear); Bilirubin,Urine Negative (Negative); Glucose,Urine (UA) Negative (Negative); Ketones,Urine Negative (Negative); Leukocyte Esterase,Urine Small (Negative); Mucus,Urine Rare /hpf; Nitrite,Urine Negative (Negative); PH, Urine 7.5 (5.0-8.0); Particle Count 1913; Protein,Urine 1+ (Negative); RBC,Urine 16 /hpf (0-5); Specific Gravity,Urine 1.014 (1.001-1.035); Squamous Epithelial Cell,Urine 1 /hpf (0-4); UA Billing (MACRO vs. MICRO) MICRO; Urobilinogen,Urine <2.0 mg/dL (<2.0); WBC,Urine 10 /hpf (0-5)
--- NOTE | 2016-10-19 09:04 | XR ---
EXAMINATION TYPE: XR chest 1V DATE OF EXAM: 10/19/2016 8:58 AM HISTORY: Shortness of breath. COMPARISON: 10/11/2016 TECHNIQUE: Single view of the chest is submitted. FINDINGS: Demonstrated are scattered senescent parenchymal change. There is no evidence for focal infiltrate. The heart is stable. Hilar and mediastinal structures are within normal limits. Degenerative changes are seen of the dorsal spine. IMPRESSION: 1. Chronic changes without evidence for acute pulmonary disease.
--- NOTE | 2016-10-19 09:05 | CT ---
EXAMINATION TYPE: CT brain wo con DATE OF EXAM: 10/19/2016 8:57 AM HISTORY: Patient found unresponsive CT DLP: 1121 mGycm. Automated Exposure Control for Dose Reduction was Utilized. TECHNIQUE: CT scan of the head is performed without contrast. COMPARISON: CT brain from 8 days ago. FINDINGS: There is no acute intracranial hemorrhage or midline shift identified. There is diffuse v entricular and sulcal prominence consistent with diffuse age-related cerebral atrophy. There is low- attenuation in the periventricular white matter consistent with chronic small vessel ischemic change. The globes are intact and the visualized sinuses are clear. Some soft tissue density right welt maker al auditory canal is felt to reflect cerumen. IMPRESSION: No acute intracranial hemorrhage or midline shift. There is moderate diffuse age-relate d cerebral atrophy and moderate to severe chronic small vessel ischemic change redemonstrated. No sig nificant change from recent CT study is noted.
[2016-10-19 09:11] LABS: Creatine Kinase MB 1.8 ng/mL (0.0-2.4); Troponin I 0.033 ng/mL (0.000-0.034)
[2016-10-19] MEDS ORDERED: ASPIRIN 325 MG TAB PO STA (10:24)
[2016-10-19] MEDS ORDERED: MEROPENEM 1 GM in SODIUM CHLORIDE 0.9% 100 ML IVPB STA (10:24)
[2016-10-19] MEDS: SODIUM CHLORIDE 0.9% 1,000 ML IV SCH ×2 (10:44→20:11)
[2016-10-19 14:38] VITALS: BMI 19.9
--- NOTE | 2016-10-19 19:14 | P.CNNES ---
History of Present Illness Consult date: 10/19/16 History of Present Illness: The patient is a 61-year-old right-handed white female with history of multiple sclerosis. The patient was recently admitted to [facility] and discharged yesterday evening. On October 11 she was admitted to the hospital and treated with severe for severe sepsis secondary to UTI with E. coli and Proteus. Also has been treating chronically for stage IV decubitus ulcers on wound VAC. Her previous admission gallstones with possible acute cholecystitis was diagnosed and surgery recommended as outpatient. 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 Is on Tysabri up until last March when she developed the wound infections. Asymptomatic The patient was unresponsive in the [facility] this morning. [facility] last night from the hospital.'s to the hospital with unresponsive episode and seizure activity. He has no prior history of seizures. Tramadol is on her medication list. He is at the bedside and they are not sure whether she's been on that very long. Patient has apparently been postictal for most of the day. She is arousable to touch at this time and opens eyes and looks around. She has had reduced speech for over a year and reduced cognitive functioning for the past year. She had a CT of the brain which was unchanged compared to the one taken one week ago. This showed severe cerebral atrophy and chronic small vessel disease. Review of Systems ROS unobtainable: due to mental status Past Medical History Past Medical History: Hypertension, Pneumonia, Skin Disorder Additional Past Medical History / Comment(s): Pt recently admitted to [facility] on with severe sepsis 2ndary to UTI with ecoli and proteus/bacteremia with ecoli and proteus/gallstones, possible cholelithiasis. Other hx: NEEDS WANDA FOR LIFTING, chronic RAO CATH, Normally, CAN USUALLY TAKE ORAL MEDS ONE AT A TIME OR CRUSH IN APPLESAUCE, Multiple Sclerosis since 1998.; sacral (with wound vac-not on at this time per spouse) & L hip (mostly healed) decubitus ulcer with cellulitis; sacral wound will require skin grafting, malnutrition; Chronic UTI's, HTN in past but now labile and mostly low. History of Any Multi-Drug Resistant Organisms: ESBL, MRSA Date of last positivie culture/infection: 05/31/16-MRSA; 10/11/16-ESBL E.coli MDRO Source:: MRSA-Buttock; ESBL URINE,BLOOD Past Surgical History: Appendectomy, Section, Tubal Ligation Additional Past Surgical History / Comment(s): 10/19/16 PICC line, DEBRIDEMENTS OF SACRAL PRESSURE SORE. Past Anesthesia/Blood Transfusion Reactions: No Reported Reaction Past Psychological History: Anxiety Additional Psychological History / Comment(s): Pt resides at [facility]. She is a wanda lift to wheelchair. She needs assist with all ADLs. She has confused times. Smoking Status: Former smoker Past Alcohol Use History: Occasional Additional Past Alcohol Use History / Comment(s): Pt started smoking in 1971 and quit 03/2016. She smoked < 1ppd. She used to drink alcohol but has not drank in 20 yrs. Past Drug Use History: None Reported - Past Family History Mother Family Medical History: No Reported History Additional Family Medical History / Comment(s): Mother is healthy Father Family Medical History: AFIB, Cancer, Diabetes Mellitus, Myocardial Infarction ( [place]) Additional Family Medical History / Comment(s): Father had lung cancer with lobectomy. Medications and Allergies Home Medications Medication Instructions Recorded Confirmed Type Cholecalciferol [Vitamin D3] 2,000 unit PO HS 05/10/16 10/19/16 History Melatonin 3 mg PO HS PRN 05/10/16 10/19/16 History [place]-3 Fatty Acids/Fish Oil [Fish 1 cap PO HS 05/10/16 10/19/16 History Oil 1,000 mg Softgel] Oxybutynin Chloride [Ditropan XL] 10 mg PO HS 05/10/16 10/19/16 History Polyethylene Glycol 3350 [Miralax] 17 gm PO QAM 05/10/16 10/19/16 History Baclofen 10 mg PO TID 05/24/16 10/19/16 History Bisacodyl 10 mg PO DAILY PRN 06/24/16 10/19/16 History Acetaminophen [Tylenol] 650 mg PO Q4H PRN 08/16/16 10/19/16 History Ipratropium-Albuterol Nebulize 3 ml INHALATION RT-Q6H PRN 08/23/16 10/19/16 History [Duoneb 0.5 mg-3 mg/3 ml Soln] Loratadine [Claritin] 10 mg PO DAILY 09/20/16 10/19/16 History Ferrous Sulfate [Iron (65 MG 325 mg PO DAILY 09/27/16 10/19/16 History Elemental)] Folic Acid 0.4 mg PO HS 09/27/16 10/19/16 History ALPRAZolam [Xanax] 0.5 mg PO TID 10/19/16 10/19/16 History Amino Acids/Protein Hydrolys 30 ml PO DAILY 10/19/16 10/19/16 History [Pro-Stat Supplement] Multivit-Min/FA/Lycopene/Lut 1 tab PO DAILY 10/19/16 10/19/16 History [Centrum Silver Tablet] Vitamin B-12/Folic Acid 500-400mg 1 tab PO HS 10/19/16 10/19/16 History traMADol HCl [Ultram] 50 mg PO Q8H PRN 10/19/16 10/19/16 History Allergies Allergy/AdvReac Type Severity Reaction Status Date / Time No Known Allergies Allergy Verified 10/19/16 08:28 Physical Examination - Vital Signs Vital Signs: Vital Signs Temp Pulse Pulse Resp BP BP Pulse Ox 10/19/16 15:50 99.6 F 75 14 96/52 98 10/19/16 10:54 97.8 F 81 18 134/61 100 Intake and Output 10/19/16 10/19/16 10/19/16 06:59 14:59 22:59 Other: Voiding Method Indwelling Catheter Weight 61.235 kg Patient Weight 10/20/16 06:59 Weight 61.235 kg - Constitutional General appearance: average body habitus - Respiratory Respiratory: lungs clear - Cardiovascular Cardiovascular: regular rate Extremities: no peripheral edema bilaterally - Neurologic Mental status the patient was easily arousable her eyes open she looked around she smiled at her she did not answer any specific questions. Cranial nerve examination: other (There is no obvious facial asymmetry and cranial nerve examination could not be performed due to mental status changes) Speech examination: other (Slurred speech) Detailed motor examination: other (Spastic quadriparesis involving both legs and left arm primarily) Reflex and gait examination: other (Patient does not walk gait could not be checked) - Psychiatric Psychiatric: cooperative (Patient had difficulty following commands and appeared somewhat confused and sedated) Results - Laboratory Findings CBC and BMP: 10/19/16 08:08 10/19/16 08:08 Assessment and Plan (1) New onset seizure Status: Acute Code(s): R56.9 - UNSPECIFIED CONVULSIONS (2) Altered mental status Status: Acute Code(s): R41.82 - ALTERED MENTAL STATUS, UNSPECIFIED (3) Urinary tract infection Status: Acute Code(s): N39.0 - URINARY TRACT INFECTION, SITE NOT SPECIFIED (4) Stage IV pressure ulcer of sacral region Status: Chronic Code(s): L89.154 - PRESSURE ULCER OF SACRAL REGION, STAGE 4 (5) Multiple sclerosis Status: Chronic Code(s): G35 - MULTIPLE SCLEROSIS Plan: The patient is a 61-year-old woman with MS who has been readmitted to the hospital with sepsis and new onset seizure. He has been placed on Keppra thousand milligrams every 12 hours. She has not had any further seizures. She was on tramadol and recommend discontinuing this medication. She is being treated for ongoing sepsis and infection. Recommend EEG. She had a CT of the brain which showed diffuse severe cerebral atrophy as well as chronic small vessel disease. Recommend MRI of the brain. We'll check trough Keppra level in a.m.
[2016-10-19] MEDS: PIPERACILLIN-TAZOBACTAM 3.375 GM in DEXTROSE/WATER 1 50ML.BAG IVPB SCH (20:11)
[2016-10-19] MEDS: levETIRAcetam IV 1,000 MG in SALINE 1 100ML.BAG IVPB SCH (20:11)
--- NOTE | 2016-10-19 20:12 | MR ---
EXAMINATION TYPE: MR brain wo con DATE OF EXAM: 10/19/2016 7:58 PM COMPARISON: 06/06/2014 HISTORY: New onset seizure, Advanced MS FINDINGS: The ventricles, basal cisterns and sulci overlying the cerebral convexities are moderately enlarged. There is evidence of moderately severe confluent periventricular white matter ischemic demyelination. Demyelinating disease is not excluded. Remote deep white matter insults are also noted. No acute edema is seen on diffusion weighted imaging. There is no evidence for midline shift or mass effect. Acute intracranial hemorrhage or extra-axial collection is not evident. The paranasal sinuses and mastoid air cells are well-aerated. IMPRESSION: Moderately severe confluent white matter changes may be on the basis of multiple sclerosis. Generaliz ed atrophic change. No acute intracranial process.
[2016-10-19] MEDS ORDERED: MEROPENEM 1 GM in SODIUM CHLORIDE 0.9% 100 ML IVPB SCH (21:00)
--- NOTE | 2016-10-19 22:14 | HP ---
DATE OF ADMISSION: 10/19/2016 CHIEF COMPLAINT: Altered mental status and shaky movements of the right hand. HISTORY OF PRESENT ILLNESS: MsBoone Wallis is a 61-year-old female with known history of multiple sclerosis and bilateral lower extremity contractures; bedridden. She has sacral decubitus ulcers, on wound V.A.C. Also recent ESBL and proteus urinary tract infection and bacteremia. She was discharged on 10/18/2016 to a assisted to complete an antibiotic course. Patient is alert and oriented x3 at baseline. Apparently patient in the morning was not arousable and was having shaky movements of the hands and was noted to be seizing. Patient was transferred to [facility] for evaluation. Otherwise, patient was being treated for E coli urinary tract infection with Meropenem. Patient currently could not provide any history. She is sleeping comfortably and saturating well on nasal cannula. No fever. No chills. No bowel or bladder incontinence. Patient does not have any history of seizures in the past. Patient was started on Keppra in the hospital and currently patient is sleeping comfortably. Complete review of systems could not be obtained from the patient. Past medical history includes: 1. Hypertension. 2. Multiple sclerosis since 1998 with bilateral lower extremity contractures and bedridden. 3. Sacral and left hip decubitus ulcer with cellulitis, currently on wound V.A.C. 4. Malnutrition. 5. Chronic urinary tract infection and indwelling Baltazar catheter for neurogenic bladder. 6. History of ESBL urinary tract infection. 7. Recent E coli and proteus UTI and bacteremia. 8. Gallstones. 9. Chronic pain. 10. Anxiety. PAST SURGICAL HISTORY: 1. Appendectomy. 2. . 3. Tubal ligation. 4. Debridement of sacral pressure sore. PSYCHOSOCIAL HISTORY: Anxiety. SOCIAL HISTORY: Patient resides at [facility]. She needs assistance with all ADLs. Patient is a former smoker; started smoking in 1971; quit in 2016. Smoked less than a pack. Patient used to drink but has not drunk in 20 years. No drugs or IVDU. FAMILY HISTORY: Mother is healthy. Father has atrial fibrillation, cancer, diabetes mellitus and [place]. Father had lung cancer with lobectomy. ALLERGIES: NO KNOWN DRUG ALLERGIES. Home medications include: 1. Vitamin D3. 2. Melatonin. 3. [place]-3 fatty acids. 4. Oxybutynin. 5. Polyethylene glycol. 6. Baclofen. 7. Bisacodyl. 8. Tylenol. 9. DuoNeb. 10. Claritin. 11. Ferrous sulfate. 12. Folic acid. 13. Xanax. 14. ProStat supplement. 15. Multivitamin. 16. Centrum Silver. 17. Vitamin B12. 18. Tramadol. 19. Ertapenem started recently. PHYSICAL EXAMINATION: A 61-year-old female lying in the bed, currently sleeping, not arousable. VITALS: Blood pressure is 94/48, pulse 71, respiration 18, temperature afebrile, pulse ox 100% on 2 L nasal cannula. HEENT: Atraumatic, normocephalic. Neck is supple. No JVD. CVS: S1, S2 heard. No murmurs. No gallop. LUNGS: Bilateral air entry is present. ABDOMEN: Soft. Bowel sounds are present. ROLL ON MAN: Patient is currently drowsy and sleepy. Able to move both upper extremities at baseline. ( ) extremity paralysis at baseline. EXTREMITIES: No edema. Pulses palpable bilaterally. PSYCHIATRIC: Could not be assessed completely. SKIN: No rash or skin lesions except sacral decubitus ulcers with wound V.A.C. LABORATORY DATA: WBC 12.1, hemoglobin 9.1, platelets 439. INR 1.1. Sodium 141, potassium 4.5, chloride 105. Bicarb is 25. BUN 19, creatinine 0.53. Lactic acid 2.1, improved to 1.0. Albumin 3.2. UA showed 16 RBCs and [address] head showed no acute intracranial hemorrhage or midline shift. There is moderate diffuse age-related cerebral atrophy and moderate to severe chronic small-vessel ischemic changes demonstrated; no significant change from previous CT scan. Chest x-ray shows chronic changes without evidence of acute pulmonary disease. EKG shows sinus rhythm. ASSESSMENT: 1. Altered mental status with weakness and shaky movements of hands; possible partial seizures. Patient was started on Keppra in the ER and Neurology has been consulted. CT head is negative. No electrolyte abnormality noted. 2. Recent Escherichia coli and proteus urinary tract infection. Patient was discharged on Ertapenem on 10/18/2016. Repeat blood cultures also grew E coli and proteus. Repeat cultures have been negative. 3. Sacral decubitus ulcers, on wound V.A.C. 4. History of ESBL urinary tract infection. 5. Multiple sclerosis and bilateral lower extremity contractures and bedridden. 6. Gallstones with no evidence of acute cholecystitis on recent ultrasound. General Surgery recommended elective cholecystectomy at that time. 7. Lactic acidosis, improved now. 8. History of hypertension. 9. Chronic pain. 10. Anxiety. 11. Deep venous thrombosis prophylaxis with Lovenox subcutaneously. DISCUSSION AND PLAN: Patient will be continued on IV fluids and Keppra, seizure precautions. Follow closely. Neurology has been consulted for further evaluation. Continue the current management. discontinue the Meropenem due to seizures and reconsult ID. Further recommendations based on the clinical course. MTDD
[2016-10-19] MEDS ORDERED: traMADol 50 MG TAB PO PRN (23:08)
[2016-10-20] MEDS: PIPERACILLIN-TAZOBACTAM 3.375 GM in DEXTROSE/WATER 1 50ML.BAG IVPB SCH ×2 (00:30→09:00)
[2016-10-20 03:32] LABS: Glucose,Whole Blood 87 mg/dL (75-99)
[2016-10-20] MEDS: HYDROcodone/APAP 5-325MG 1 EACH TAB PO PRN ×2 (03:33→09:04)
[2016-10-20] MEDS: SODIUM CHLORIDE 0.9% 1,000 ML IV SCH (05:47)
[2016-10-20 07:43] VITALS: RESP 16
[2016-10-20] MEDS: levETIRAcetam IV 1,000 MG in SALINE 1 100ML.BAG IVPB SCH (08:14)
[2016-10-20] MEDS ORDERED: ENOXAPARIN 40 MG/0.4 ML SYRINGE SQ SCH (09:00)
[2016-10-20] MEDS ORDERED: ASPIRIN 325 MG TAB PO SCH (09:00)
--- NOTE | 2016-10-20 09:31 | P.CONS ---
History of Present Illness - Reason for Consult Consult date: 10/20/16 Sepsis - History of Present Illness This is a 61-year-old female with past history of multiple sclerosis and [facility] for large decubitus ulcer to her coccyx stage IV and small ulceration to her left trochanteric area. Patient has been bedbound for long period of time. She had a recent hospitalization October 11 through October 18 at which time she was seen by Dr. Hamilton and was treated for ESBL E. coli, Proteus bacteremia due to urinary tract infection. Patient was discharged back to her retirement on October 18 with Invanz to continue for 10 days. There was concern the patient had seizure like activity yesterday and she was returned back to [facility] emergency center for evaluation. She has no previous history of seizures. She was seen in consultation by Dr. Maki and started on Keppra. CAT scan of the brain as well as MRI of the brain failed to reveal any acute changes but did show moderate to severe confluent white matter changes on the basis of MS. Chest x- ray showed chronic changes without acute disease. Patient was given 1 dose of meropenem in the emergency center and subsequently switched to Zosyn. Patient has been admitted to the [facility] floor. She does have a chronic Rao catheter which we will plan to change during this hospitalization. She has had no further seizure activity. She normally has a wound VAC to the coccyx decubitus ulcer which has been removed. Temperature max is been 100.9 and white count of 12.1. Patient mumbles a few words and is able to follow only very basic commands like opening her eyes. Review of Systems ROS unobtainable: due to mental status All systems: negative Constitutional: Denies chills, Denies fever Eyes: denies blurred vision, denies pain Ears, nose, mouth and throat: Denies headache, Denies sore throat Cardiovascular: Denies chest pain, Denies shortness of breath Respiratory: Denies cough Gastrointestinal: Denies abdominal pain, Denies diarrhea, Denies nausea, Denies vomiting Genitourinary: Denies dysuria, Denies hematuria Musculoskeletal: Denies myalgias Integumentary: Denies pruritus, Denies rash Neurological: Denies numbness, Denies weakness Psychiatric: Denies anxiety, Denies depression Endocrine: Denies fatigue, Denies weight change Past Medical History Past Medical History: Hypertension, Pneumonia, Skin Disorder Additional Past Medical History / Comment(s): Pt recently admitted to [facility] on with severe sepsis 2ndary to UTI with ecoli and proteus/bacteremia with ecoli and proteus/gallstones, possible cholelithiasis. Other hx: NEEDS WANDA FOR LIFTING, chronic RAO CATH, Normally, CAN USUALLY TAKE ORAL MEDS ONE AT A TIME OR CRUSH IN APPLESAUCE, Multiple Sclerosis since 1998.; sacral (with wound vac-not on at this time per spouse) & L hip (mostly healed) decubitus ulcer with cellulitis; sacral wound will require skin grafting, malnutrition; Chronic UTI's, HTN in past but now labile and mostly low. History of Any Multi-Drug Resistant Organisms: ESBL, MRSA Year Discovered:: 05/31/16-MRSA; 10/11/16-ESBL E.coli MDRO Source:: MRSA-Buttock; ESBL URINE,BLOOD Past Surgical History: Appendectomy, Section, Tubal Ligation Additional Past Surgical History / Comment(s): 10/19/16 PICC line, DEBRIDEMENTS OF SACRAL PRESSURE SORE. Past Anesthesia/Blood Transfusion Reactions: No Reported Reaction Past Psychological History: Anxiety Additional Psychological History / Comment(s): Pt resides at [facility]. She is a wanda lift to wheelchair. She needs assist with all ADLs. She has confused times. Smoking Status: Former smoker Past Alcohol Use History: Occasional Additional Past Alcohol Use History / Comment(s): Pt started smoking in 1971 and quit 03/2016. She smoked < 1ppd. She used to drink alcohol but has not drank in 20 yrs. Past Drug Use History: None Reported - Past Family History Mother Family Medical History: No Reported History Additional Family Medical History / Comment(s): Mother is healthy Father Family Medical History: AFIB, Cancer, Diabetes Mellitus, Myocardial Infarction ( [place]) Additional Family Medical History / Comment(s): Father had lung cancer with lobectomy. Medications and Allergies Home Medications Medication Instructions Recorded Confirmed Type Cholecalciferol [Vitamin D3] 2,000 unit PO HS 05/10/16 10/19/16 History Melatonin 3 mg PO HS PRN 05/10/16 10/19/16 History [place]-3 Fatty Acids/Fish Oil [Fish 1 cap PO HS 05/10/16 10/19/16 History Oil 1,000 mg Softgel] Oxybutynin Chloride [Ditropan XL] 10 mg PO HS 05/10/16 10/19/16 History Polyethylene Glycol 3350 [Miralax] 17 gm PO QAM 05/10/16 10/19/16 History Baclofen 10 mg PO TID 05/24/16 10/19/16 History Bisacodyl 10 mg PO DAILY PRN 06/24/16 10/19/16 History Acetaminophen [Tylenol] 650 mg PO Q4H PRN 08/16/16 10/19/16 History Ipratropium-Albuterol Nebulize 3 ml INHALATION RT-Q6H PRN 08/23/16 10/19/16 History [Duoneb 0.5 mg-3 mg/3 ml Soln] Loratadine [Claritin] 10 mg PO DAILY 09/20/16 10/19/16 History Ferrous Sulfate [Iron (65 MG 325 mg PO DAILY 09/27/16 10/19/16 History Elemental)] Folic Acid 0.4 mg PO HS 09/27/16 10/19/16 History ALPRAZolam [Xanax] 0.5 mg PO TID 10/19/16 10/19/16 History Amino Acids/Protein Hydrolys 30 ml PO DAILY 10/19/16 10/19/16 History [Pro-Stat Supplement] Multivit-Min/FA/Lycopene/Lut 1 tab PO DAILY 10/19/16 10/19/16 History [Centrum Silver Tablet] Vitamin B-12/Folic Acid 500-400mg 1 tab PO HS 10/19/16 10/19/16 History traMADol HCl [Ultram] 50 mg PO Q8H PRN 10/19/16 10/19/16 History Allergies Allergy/AdvReac Type Severity Reaction Status Date / Time No Known Allergies Allergy Verified 10/19/16 08:28 Physical Exam Vitals: Vital Signs Temp Pulse Pulse Resp BP BP Pulse Ox 10/20/16 07:00 97.3 F L 89 16 118/93 94 L 10/19/16 23:00 98.5 F 84 14 116/63 98 10/19/16 15:50 99.6 F 75 14 96/52 98 10/19/16 10:54 97.8 F 81 18 134/61 100 Intake and Output 10/19/16 10/20/16 10/20/16 22:59 06:59 14:59 Intake Total 100 Output Total 700 Balance 100 -700 Intake: Oral 100 Output: Urine 700 Other: Voiding Method Indwelling Catheter Gen: This is a 61-year-old female with quadriparesis due to MS. She appears to be comfortable at this time. HEENT: Head is atraumatic, normocephalic. Pupils equal, round. Sclerae is anicteric. Oral mucous membranes are dry. No thrush noted. NECK: Supple. No JVD. No lymphadenopathy. No thyromegaly. LUNGS: Clear to auscultation. No wheezes or rhonchi. No intercostal retractions. HEART: Regular rate and rhythm. No murmur. ABDOMEN: Soft. Bowel sounds are present. No masses. No tenderness. Rao catheter in place draining cloudy julianne urine. EXTREMITIES: No pedal edema. Dorsalis pedis +2 bilaterally. Evaluation of coccyx decubitus ulcer deferred to Dr. Jain. NEUROLOGICAL: Patient is awake, quadriparesis. Results Results: Laboratory Results WBC 12.1 k/uL (3.8-10.6) H 10/19/16 08:08 RBC 3.66 m/uL (3.80-5.40) L 10/19/16 08:08 Hgb 9.1 gm/dL (11.4-16.0) L 10/19/16 08:08 Hct 29.6 % (34.0-46.0) L 10/19/16 08:08 MCV 81.0 fL (80.0-100.0) 10/19/16 08:08 MCH 24.7 pg (25.0-35.0) L 10/19/16 08:08 MCHC 30.5 g/dL (31.0-37.0) L 10/19/16 08:08 RDW 16.0 % (11.5-15.5) H 10/19/16 08:08 Plt Count 439 k/uL (150-450) 10/19/16 08:08 Neutrophils % 79 % 10/19/16 08:08 Lymphocytes % 15 % 10/19/16 08:08 Monocytes % 4 % 10/19/16 08:08 Eosinophils % 0 % 10/19/16 08:08 Basophils % 0 % 10/19/16 08:08 Neutrophils # 9.5 k/uL (1.3-7.7) H 10/19/16 08:08 Lymphocytes # 1.8 k/uL (1.0-4.8) 10/19/16 08:08 Monocytes # 0.5 k/uL (0-1.0) 10/19/16 08:08 Eosinophils # 0.0 k/uL (0-0.7) 10/19/16 08:08 Basophils # 0.0 k/uL (0-0.2) 10/19/16 08:08 Hypochromasia Moderate 10/19/16 08:08 PT 10.9 sec (9.0-12.0) 10/19/16 08:08 INR 1.1 (<1.1) 10/19/16 08:08 APTT 28.9 sec (22.0-30.0) 10/19/16 08:08 Sodium 141 mmol/L (137-145) 10/19/16 08:08 Potassium 4.5 mmol/L (3.5-5.1) 10/19/16 08:08 Chloride 105 mmol/L (98-107) 10/19/16 08:08 Carbon Dioxide 25 mmol/L (22-30) 10/19/16 08:08 Anion Gap 11 mmol/L 10/19/16 08:08 BUN 19 mg/dL (7-17) H 10/19/16 08:08 Creatinine 0.53 mg/dL (0.52-1.04) 10/19/16 08:08 Est GFR (MDRD) Af Amer >60 (>60 ml/min/1.73 sqM) 10/19/16 08:08 Est GFR (MDRD) Non-Af >60 (>60 ml/min/1.73 sqM) 10/19/16 08:08 Glucose 97 mg/dL (74-99) 10/19/16 08:08 POC Glucose (mg/dL) 87 mg/dL (75-99) 10/20/16 03:12 POC Glu [employer] [place] Elizabeth Lau 10/20/16 03:12 Plasma Lactic Acid Александр 1.0 mmol/L (0.7-2.0) 10/19/16 11:38 Calcium 9.1 mg/dL (8.4-10.2) 10/19/16 08:08 Phosphorus 3.5 mg/dL (2.5-4.5) 10/19/16 08:08 Magnesium 2.0 mg/dL (1.6-2.3) 10/19/16 08:08 Total Bilirubin 0.5 mg/dL (0.2-1.3) 10/19/16 08:08 AST 26 U/L (14-36) 10/19/16 08:08 ALT 44 U/L (9-52) 10/19/16 08:08 Alkaline Phosphatase 114 U/L (38-126) 10/19/16 08:08 Total Creatine Kinase 184 U/L (30-135) H 10/19/16 08:08 CK-MB (CK-2) 1.8 ng/mL (0.0-2.4) 10/19/16 08:08 CK-MB (CK-2) Rel Index 1.0 10/19/16 08:08 Troponin I 0.019 ng/mL (0.000-0.034) 10/19/16 20:47 Total Protein 7.5 g/dL (6.3-8.2) 10/19/16 08:08 Albumin 3.2 g/dL (3.5-5.0) L 10/19/16 08:08 Urine Color Yellow 10/19/16 08:30 Urine Appearance Clear (Clear) 10/19/16 08:30 Urine pH 7.5 (5.0-8.0) 10/19/16 08:30 Ur Specific [place] 1.014 (1.001-1.035) 10/19/16 08:30 Urine Protein 1+ (Negative) H 10/19/16 08:30 Urine Glucose (UA) Negative (Negative) 10/19/16 08:30 Urine Ketones Negative (Negative) 10/19/16 08:30 Urine Blood Small (Negative) H 10/19/16 08:30 Urine Nitrite Negative (Negative) 10/19/16 08:30 Urine Bilirubin Negative (Negative) 10/19/16 08:30 Urine Urobilinogen <2.0 mg/dL (<2.0) 10/19/16 08:30 Ur Leukocyte Esterase Small (Negative) H 10/19/16 08:30 Urine RBC 16 /hpf (0-5) H 10/19/16 08:30 Urine WBC 10 /hpf (0-5) H 10/19/16 08:30 Ur Squamous Epith Cells 1 /hpf (0-4) 10/19/16 08:30 Urine Mucus Rare /hpf (None) H 10/19/16 08:30 CBC & Chem 7: 10/19/16 08:08 10/19/16 08:08 Assessment and Plan Plan: This is a 61-year-old female with significant past history of multiple sclerosis and functional quadriplegia recently hospitalized with ESBL E. coli, Proteus bacteremia and urinary tract infection. Patient was placed on Invanz and was to complete a ten-day course. Patient developed possible seizure activity at the retirement. Invanz is noted to lower seizure threshold and this has been discontinued and patient started on Zosyn. Local wound care to the coccyx ulcer will be addressed. Continue supportive care. Further recommendations as patient progresses. The above dictated assessment and findings were discussed with Dr. Jain. The impression and plan of care have been directed as dictated. Mamie Joe nurse practitioner acting as scribe for Dr. Jain. Time with Patient: Greater than 30
[2016-10-20] MEDS ORDERED: IPRATROPIUM-ALBUTEROL 3 ML NEB INHALATION PRN (10:35)
[2016-10-20] MEDS ORDERED: BISACODYL 10 MG SUPP RECTAL PRN (10:35)
[2016-10-20] MEDS ORDERED: MELATONIN 3 MG TABLET PO PRN (10:35)
[2016-10-20] MEDS ORDERED: ACETAMINOPHEN TAB 325 MG TAB PO PRN (10:35)
[2016-10-20] MEDS ORDERED: MULTIVITAMINS, THERA 1 EACH TAB PO SCH (12:00)
--- NOTE | 2016-10-20 12:23 | DS ---
DATE OF ADMISSION: 10/19/2016 DATE OF DISCHARGE: The patient is a 61-year-old female who was recently discharged from hospital. Patient has multiple sclerosis history with chronic contractures and decubitus ulcer. Patient was apparently treated for urinary tract infection, bacteremia with ESBL E. coli and Proteus and discharged on meropenem. Patient is also on tramadol. Patient subsequently comes in with what appeared to be myoclonus rather than a seizure. There was a concern about seizure, although patient was not awake at that time. The patient was started on Keppra by neurology and MRI was obtained which showed old multiple sclerotic changes. No other significant abnormality was appreciated. Patient most probably has myoclonus, which is probably related to decrease in seizure threshold from 2 medications, one meropenem and the other one is tramadol. Tramadol was discontinued. Meropenem was switched to Zosyn. Patient evaluated by Infectious Disease and also Neurology. If Neurology clears her, patient will be discharged today. A total 10-day duration of antibiotics is being recommended by Infectious Disease. Patient is otherwise clinically doing well and patient was seen and examined on the day of discharge. Vitals are stable. PHYSICAL EXAMINATION: GENERAL: The patient is alert and oriented x3, not in any acute distress. Well developed, well nourished. HEENT: Pupils are round and equally reacting to light. EOMI. No scleral icterus. No conjunctival pallor. Normocephalic, atraumatic. No pharyngeal erythema. No thyromegaly. CARDIOVASCULAR: S1 and S2 present. No murmurs, rubs, or gallops. PULMONARY: Chest is clear to auscultation, no wheezing or crackles. ABDOMEN: Soft, nontender, nondistended, normoactive bowel sounds. No palpable organomegaly. MUSCULOSKELETAL: No joint swelling or deformity. EXTREMITIES: No cyanosis, clubbing, or pedal edema. NEUROLOGICAL: No significant new neurological changes. The patient does not have any myoclonic activity at this point of time, although patient does have chronic contractures. SKIN: No rashes. Laboratory data was reviewed. Patient does have some leukocytosis. ASSESSMENT AND PLAN: 1. Altered mental status and myoclonus secondary to toxic encephalopathy from medications. I will leave the decision of Keppra to Neurology whether they want her to continue Keppra or not as this is clearly evident that the patient had this myoclonic activity from above mentioned 2 medications, which are being discontinued. 2. Recent Escherichia coli and Proteus urinary tract infection. 3. Patient apparently has a decubitus ulcer too, which I did not examine and I leave that examination to Infectious Disease. 4. Patient appears to have bacteremia, not sure whether from urinary tract infection or wound itself. 5. Patient appears to have stage III to IV sacral decubitus ulcer. 6. Multiple sclerosis, contractures of all the extremities. 7. Lactic acidosis, which resolved at this point of time. 8. Hypertension. 9. Chronic pain. 10. Anxiety disorder. Patient will be discharged today back to subacute rehabilitation with discontinuation of above 2 medications. Please refer to my depart summary for the details of discharge medications. Activity as per the facility. No medication changes are being made at this point of time except for those 2 above mentioned medication changes as already described in the HPI. If cleared by Infectious Disease and Neurology, patient will be discharged today. Spent greater than 35 minutes in total discharge process. DIET: Regular diet. Activity as tolerated.
[2016-10-20 15:39] VITALS: BP 109/56; PULSE 83; TEMP 99.2
[2016-10-20] MEDS ORDERED: ALPRAZolam 0.5 MG TAB PO SCH (16:00)
[2016-10-20] MEDS ORDERED: BACLOFEN 10 MG TAB PO SCH (16:00)
[2016-10-20] MEDS ORDERED: NON-FORMULARY DRUG (Omega-3 Fatty Acids/Fish Oil [Fish Oil 1,000 Mg Softgel] 1 CAP) PO SCH (21:00)
[2016-10-20] MEDS ORDERED: FOLIC ACID 1 MG TAB PO SCH (21:00)
[2016-10-20] MEDS ORDERED: CYANOCOBALAMIN 500 MCG TAB PO SCH (21:00)
[2016-10-20] MEDS ORDERED: OXYBUTYNIN 10 MG TAB.ER.24 PO SCH (21:00)
[2016-10-20] MEDS ORDERED: CHOLECALCIFEROL 1,000 UNIT TAB PO SCH (21:00)
--- NOTE | 2016-10-20 22:07 | P.CON ---
Consult Note - . Consult date: 10/20/16 Assessment/Plan:: This is a 61-year-old female with past history of multiple sclerosis and [facility] for large decubitus ulcer to her coccyx stage IV and small ulceration to her left trochanteric area. Patient has been bedbound for long period of time. She had a recent hospitalization October 11 through October 18 at which time she was seen by Dr. Hamilton and was treated for ESBL E. coli, Proteus bacteremia due to urinary tract infection. [facility] with Invanz to continue for 10 days. There was concern the patient had seizure like activity yesterday and she was returned back to [facility] emergency center for evaluation. She has no previous history of seizures. She was seen in consultation by Dr. Maki and started on Keppra. CAT scan of the brain as well as MRI of the brain failed to reveal any acute changes but did show moderate to severe confluent white matter changes on the basis of MS. Chest x- ray showed chronic changes without acute disease. Patient was given 1 dose of meropenem in the emergency center and subsequently switched to Zosyn. [facility] floor. She does have a chronic Baltazar catheter which we will plan to change during this hospitalization. She has had no further seizure activity. She normally has a wound VAC to the coccyx decubitus ulcer which has been removed. Temperature max is been 100.9 and white count of 12.1. Patient mumbles a few words and is able to follow only very basic commands like opening her eyes. Please see the consult note is dictated by nurse practitioner Mrs. Mamie Joe. Patient is improving. No further seizure activity noted. Mentation is clearing. Will be going back to the extended care facility today. Is likely a multifactorial event for her seizure activity including the carbapenem's was reduce the seizure threshold. She's changed to Zosyn to complete a course of antibiotic therapy for recent bacteremic sepsis from urinary infection. She will follow the wound healing Center for ongoing follow-up. I with evaluation assessment and plan as dictated nurse practitioner Mrs. Mamie Joe.
[2016-10-21] MEDS ORDERED: POLYETHYLENE GLYCOL 3350 17 GM POWD.PACK PO SCH (09:00)
[2016-10-21] MEDS ORDERED: LORATADINE 10 MG TAB PO SCH (09:00)
[2016-10-21] MEDS ORDERED: NON-FORMULARY DRUG (Amino Acids/Protein Hydrolys [Pro-Stat Supplement] 30 ML) PO SCH (09:00)
[2016-10-21] MEDS ORDERED: FERROUS SULFATE 325 MG TAB PO SCH (09:00)
--- NOTE | 2016-10-23 08:39 | EEG ---
DATE OF SERVICE: 10/20/2016 INDICATIONS FOR EXAMINATION: The patient is a 61 -year-old female with history of multiple sclerosis. The patient admitted to the hospital with episode of seizure like activity. AGE: 61Y EEG FINDINGS: A routine 21 channel awake digital EEG recording was accomplished utilizing the 10-20 international system with bipolar and referential montages. The background activity in the most alert resting state consists of a low to medium amplitude, poorly developed and poorly sustained 6 Hz activity over the posterior head regions. This posterior rhythm attenuates to eye opening. There is a small amount of low amplitude 18-20 Hz beta activity seen maximally over the anterior head regions. Muscle and movement artifact was observed on a few occasions during the tracing. Hyperventilation was not performed. Photic stimulation at flash frequencies of 2-30 Hz produced a minimal occipital driving response. No epileptiform discharges were seen. IMPRESSION: This EEG is moderately abnormal in a diffuse fashion due to slowing of the EEG background. The EEG failed to reveal any focal, lateralized or epileptiform abnormalities. Clinical correlation is recommended.
== END 2016-10-20 16:16 | DRG 91 ==
LOC: EC 08:00 → 4MS4W 10:24
PROVIDERS: ADMIT Hospitalist; ATTEND Hospitalist
DX: G92 Toxic encephalopathy (principal); L89.154 Pressure ulcer of sacral region, stage 4; L89.229 Pressure ulcer of left hip, unspecified stage; E46 Unspecified protein-calorie malnutrition; R78.81 Bacteremia; E87.2 Acidosis; R53.2 Functional quadriplegia; N39.0 Urinary tract infection, site not specified; G35 Multiple sclerosis; N31.9 Neuromuscular dysfunction of bladder, unspecified; Z66 Do not resuscitate; I73.9 Peripheral vascular disease, unspecified; K80.20 Calculus of gallbladder without cholecystitis without obstruction; B96.20 Unspecified Escherichia coli [E. coli] as the cause of diseases classified elsewhere; T50.905A Adverse effect of unspecified drugs, medicaments and biological substances, initial encounter; I10 Essential (primary) hypertension; G89.29 Other chronic pain; F41.9 Anxiety disorder, unspecified; Z74.01 Bed confinement status; Z87.891 Personal history of nicotine dependence; Z87.440 Personal history of urinary (tract) infections; Z79.2 Long term (current) use of antibiotics; Z79.899 Other long term (current) drug therapy
CPT/HCPCS: 36415; 70450; 70551; 71010; 80053; 80177; 81001; 82550; 82553; 83605; 83735; 84100; 84484; 85025; 85610; 85730; 87040; 87086; 93005; 95819; 96361; 96374; 99285